=== PATIENT | female | born 1955 | race Caucasian/White ===

== ENCOUNTER 2023-09-24 19:28 | Emergency (ER) | payer MEDICARE, SELFPAY ==
[2023-09-24 19:43] VITALS: BP 108/73; PULSE 84; RESP 22; TEMP 36.3; O2SAT 97; BMI 20.4
--- NOTE | 2023-09-24 19:51 | ED.WEAKNESS ---
HPI - Weakness General Time Seen by Provider: 19:51 Date Seen: 09/24/23 Chief complaint: Weakness Stated complaint: Ill for a few weeks-temp, Upper resp symptoms Time Seen by Provider: 09/24/23 19:50 Source: patient, family and RN notes reviewed Mode of arrival: wheelchair Limitations: no limitations Related Data Home Medications Medication Instructions Recorded Confirmed atorvastatin 10 mg tablet 10 mg PO DAILY 09/24/23 09/24/23 lisinopril 10 mg tablet 10 mg PO DAILY 09/24/23 09/24/23 Allergies Allergy/AdvReac Type Severity Reaction Status Date / Time No Known Drug Allergies Allergy Verified 09/24/23 19:42 Exam Const: Vital Signs, click to edit/add: Vital Signs - 24 hr 09/24/23 19:43 Temperature 97.3 F L Pulse Rate [Pulse Oximeter] 84 Respiratory Rate 22 Blood Pressure [Ri t Upper Arm] 108/73 Pulse Oximetry 97 Oxygen Delivery Me thod Room Air Course Vital Signs Vital signs: Initial Vital Signs Temperature 97.3 F L 09/24/23 19:43 Temperature Source Temporal Artery Scan 09/24/23 19:43 Pulse Rate 84 09/24/23 19:43 Respiratory Rate 22 09/24/23 19:43 Blood Pressure 108/73 09/24/23 19:43 Blood Pressure Mean 84 09/24/23 19:43 Blood Pressure Position Sitting 09/24/23 19:43 Pulse Oximetry 97 09/24/23 19:43 Oxygen Delivery Method Room Air 09/24/23 19:43 Vital Signs Temperature 97.3 F L 09/24/23 19:43 Pulse Rate 84 09/24/23 19:43 Respiratory Rate 22 09/24/23 19:43 Blood Pressure 108/73 09/24/23 19:43 Pulse Oximetry 97 09/24/23 19:43 Oxygen Delivery Method Room Air 09/24/23 19:43 Temperature 97.3 F L 09/24/23 19:43 Pulse Rate 84 09/24/23 19:43 Respiratory Rate 22 09/24/23 19:43 Blood Pressure 108/73 09/24/23 19:43 Pulse Oximetry 97 09/24/23 19:43 Oxygen Delivery Method Room Air 09/24/23 19:43 Discharge Plan Discharge Prescriptions: No Action atorvastatin 10 mg tablet 10 mg PO DAILY lisinopril 10 mg tablet 10 mg PO DAILY Follow Up/Referrals: Gumaro May PA-C [Primary Care Provider] -
--- NOTE | 2023-09-24 20:17 | CRLHL7_ITS ---
For Patients: As a result of the Cures Act, medical imaging exams and procedure reports are released immediately into your electronic medical record. You may view this report before your referring provider. If you have questions, please contact your health care provider. INDICATION: Cough, weakness TECHNIQUE: Chest radiograph 2 views COMPARISON: None FINDINGS: Mediastinum: Small sliding type gastric hiatal hernia (type IV) is present. Hypertension Moderate cardiomegaly is present. Lung: Both lungs are unremarkable in appearance. No sign of pleural effusion seen. No pneumothorax is identified. Bone and Soft tissue: Unremarkable for age. IMPRESSION: 1. Moderate cardiomegaly is present. Dictated by Angel Ramos MD @ 09/24/2023 9:49:00 PM Dictated by: Angel Ramos MD @ 09/24/2023 21:49:04 (Electronically Signed)
--- NOTE | 2023-09-24 20:21 | ED.GENADULT ---
HPI - General Adult General Chief complaint: Weakness Stated complaint: Ill for a few weeks-temp, Upper resp symptoms Time Seen by Provider: 09/24/23 19:50 Source: patient, family and RN notes reviewed Mode of arrival: wheelchair Limitations: no limitations History of Present Illness HPI narrative: This 67-year-old female comes in with her reporting generalized weakness. She has been coughing and had fever with upper respiratory symptoms initially that began almost 2 weeks ago. She continues to have cough and generalized weakness. She comes in now because she is not getting any better. She arrives here with normal vital signs. She did have a couple tests at home for COVID which resulted negative. Her thinks that might of been influenza. She reports generalized weakness but states that she is able to get up and ambulate but does so with difficulty. Related Data Home Medications Medication Instructions Recorded Confirmed atorvastatin 10 mg tablet 10 mg PO DAILY 09/24/23 09/24/23 lisinopril 10 mg tablet 10 mg PO DAILY 09/24/23 09/24/23 Allergies Allergy/AdvReac Type Severity Reaction Status Date / Time No Known Drug Allergies Allergy Verified 09/24/23 19:42 Review of Systems Status of ROS: Reports: 10 or more systems reviewed and unremarkable except as noted in History and below Narrative: Constitutional: No fevers, no weight gain or loss. Eyes: No discharge. No vision changes. HENT: No congestion, no sore throat, no ear pain. Cardiovascular: No chest pain, no palpitations. Respiratory: Productive cough. No shortness of breath. Gastrointestinal: No abdominal pain, no vomiting, no diarrhea. Genitourinary: No dysuria, no hematuria. Musculoskeletal: Normal range of motion. Skin: No rashes, no pruritis. Neurological: No dizziness, sensory change, speech change. Generalized weakness. Endo/Heme/Allergies: No bruising or bleeding. No polydipsia. Pysch: no suicidality, no anxiety, no insomnia. All other systems reviewed and are negative. PFSH PFSH Social History Smoking Status: Never smoker How often do you have a drink containing alcohol: never AUDIT-C Alcohol total score: 0 Non-prescribed substance use: denies use Exam Narrative: Exam Narrative: Constitutional: Well-developed, well-nourished, no acute distress. HEENT: Normocephalic, atraumatic. Neck: Normal range of motion. Nontender. Supple. Heart: Regular. No murmurs. Normal rate. Intact distal pulses. Lungs: Clear to auscultation. No chest discomfort. No wheezes, rhonchi, or rales. Abdomen: Normal bowel sounds. Nontender. No rebound tenderness. Genitalia: Deferred. Back: No midline tenderness. Normal range of motion. Extremities: Normal range of motion. No injury. No pedal edema. Skin: Intact. No rash. Warm. No erythema or pallor. Neurologic: No altered sensation. No weakness. Alert and oriented. Psychiatric: No suicidality. No anxiety or depression. No insomnia. Nursing notes and vitals signs are reviewed. Const: Vital Signs, click to edit/add: Vital Signs - 24 hr 09/24/23 19:43 09/24/23 21:57 Temperature 97.3 F L Pulse Rate [Pulse Oximeter] 84 77 Respiratory Rate 22 Blood Pressure [Ri t Upper Arm] 108/73 Pulse Oximetry 97 97 Oxygen Delivery Me thod Room Air Room Air Course Vital Signs Vital signs: Initial Vital Signs Temperature 97.3 F L 09/24/23 19:43 Temperature Source Temporal Artery Scan 09/24/23 19:43 Pulse Rate 84 09/24/23 19:43 Respiratory Rate 22 09/24/23 19:43 Blood Pressure 108/73 09/24/23 19:43 Blood Pressure Mean 84 09/24/23 19:43 Blood Pressure Position Sitting 09/24/23 19:43 Pulse Oximetry 97 09/24/23 19:43 Oxygen Delivery Method Room Air 09/24/23 19:43 Vital Signs Temperature 97.3 F L 09/24/23 19:43 Pulse Rate 84 09/24/23 19:43 Respiratory Rate 22 09/24/23 19:43 Blood Pressure 108/73 09/24/23 19:43 Pulse Oximetry 97 09/24/23 19:43 Oxygen Delivery Method Room Air 09/24/23 19:43 Temperature 97.3 F L 09/24/23 19:43 Pulse Rate 77 09/24/23 21:57 Respiratory Rate 22 09/24/23 19:43 Blood Pressure 108/73 09/24/23 19:43 Pulse Oximetry 97 09/24/23 21:57 Oxygen Delivery Method Room Air 09/24/23 21:57 Medications Administered Medications: Generic Name Dose Route Start Last Admin Trade Name Can PRN Reason Stop Dose Admin Dexamethasone 10 mg 09/24/23 20:16 09/24/23 21:12 Dexamethasone 4 Mg/Ml Vial IV 09/24/23 20:17 10 mg ONCE ONE Administration Dextrose/Sodium Chloride 1,000 mls @ 1,000 mls/hr 09/24/23 20:16 09/24/23 22:41 5 % Dextrose/0.45% Sod Chlor IV 09/24/23 21:15 Infused .Q1H ONE Infusion Medical Decision Making MDM Narrative Medical decision making narrative: This patient comes in with generalized weakness and has on going cough and upper respiratory symptoms that started a couple weeks ago. A chest x-ray is obtained today which shows no acute findings. Additionally lab results are essentially reassuring. Her sodium is a bit low. She did receive a L of D5 half normal saline and an IV dose of dexamethasone 10 mg. Urinalysis returns without any evidence of infection. She is maintaining normal vital signs. Her states that she is not wanting to get up and move around and has decreased appetite. I stressed the importance of maintaining activity to avoid deconditioning. She is able to get up and ambulate. At the time of discharge the patient appears safe for outpatient management. The treatment plan is reviewed along with written and verbal return precautions. Reasons to return and the importance of close followup were also reviewed. The patient did receive a prescription for some tablets of Tylenol 3. Lab Data Labs: Lab Results 09/24/23 09/24/23 Range/Units 20:19 20:40 WBC 4.97 (4.50-11.00) K/uL RBC 4.49 (4.00-5.20) m/uL Hgb 13.6 (12.0-16.0) gm/dL Hct 40.1 (33.0-51.0) % MCV 89 (80-100) fL MCH 30 (26-34) pg MCHC 34 (32-36) gm/dL RDW Coeff of Agnes 12.7 (11.5-15.5) % Plt Count 190 (140-440) K/uL Neut % (Auto) 69.6 (42.0-72.0) % Lymph % (Auto) 17.5 L (20-44) % [place] % (Auto) 12.1 H (0.0-11.0) % Eos % (Auto) 0.2 (0.0-7.0) % Baso % (Auto) 0.4 (0.0-3.0) % Neut # (Auto) 3.46 (1.7-7.0) K/uL Lymph # (Auto) 0.90 (0.90-2.90) K/uL [place] # (Auto) 0.60 (0.00-0.90) K/UL Eos # (Auto) 0.01 (0.00-0.50) K/uL Baso # (Auto) 0.02 (0.00-0.30) K/uL Abs Immat Gran (auto) 0.01 (0.00-0.30) K/uL Imm/Tot Granulo (auto) 0.2 % Sodium 128 L (135-149) mmol/L Potassium 4.2 (3.6-5.1) mmol/L Chloride 94 L (96-114) mmol/L Carbon Dioxide 25 (20-32) mmol/L Anion Gap 9 (7-15) mEq/L BUN 9 (7-30) mg/dL Creatinine 0.9 (0.5-1.5) mg/dL Estimated Creat Clear 50.82 Estimated GFR 70 ml/min Glucose 118 H (60-115) mg/dL Calcium 8.5 (8.4-10.6) mg/dL Urine Color Yellow (Yellow) Urine Appearance Clear (Clear) Urine pH 6.0 (5.0-8.5) Ur Specific [place] 1.010 (1.000-1.030) Urine Protein Negative (Negative) Urine Glucose (UA) Trace A (Negative) Urine Ketones Trace A (Negative) Urine Blood Negative (Negative) Urine Nitrite Negative (Negative) Urine Bilirubin 1+ A (Negative) Urine Urobilinogen 0.2 (0.2-1.0) Ur Leukocyte Esterase Negative (Negative) Urine RBC 0-2 (0-2) Urine WBC 0-2 (0-5) Ur Squamous Epith Cells Few (None-Few) Urine Bacteria Few A (None) Hyaline Casts Few (None-Few) SARS-CoV-2 (PCR) Negative SARS-CoV-2 (Negative) Influenza Type A (PCR) Negative PCR FLU A (Negative) Influenza Type B (PCR) Negative PCR FLU B (Negative) RSV (PCR) Negative PCR RSV (Negative) Imaging Data Chest x-ray: Radiologist's impression: Moderate cardiomegaly is present. Discharge Plan Discharge Clinical Impression: Acute upper respiratory infection Patient Disposition: Home w/ Parent or Adult Condition: Unchanged Additional Instructions: Use [id number] medicines as needed and directed. Use prescription also as needed and directed for cough suppressant benefit. Activity as tolerated is encouraged. Follow up with MD or return if worsening. Prescriptions: No Action atorvastatin 10 mg tablet 10 mg PO DAILY lisinopril 10 mg tablet 10 mg PO DAILY Follow Up/Referrals: Gumaro May PA-C [Primary Care Provider] - Stand Alone Forms: [facility] Info Instructions
[2023-09-24 20:54] LABS: Basophils Absolute Auto 0.02 K/uL (0.00-0.30); Basophils Percent Auto 0.4 % (0.0-3.0); Eosinophils Absolute Auto 0.01 K/uL (0.00-0.50); Eosinophils Percent Auto 0.2 % (0.0-7.0); Hematocrit 40.1 % (33.0-51.0); Hemoglobin* 13.6 gm/dL (12.0-16.0); Immature Granulocytes Abs Auto 0.01 K/uL (0.00-0.30); Immature Granulocytes Pct Auto 0.2 %; Lymphocytes Percent Auto 17.5 % (20-44); Mean Corpuscular HGB Conc 34 gm/dL (32-36); Mean Corpuscular Hemoglobin 30 pg (26-34); Mean Corpuscular Volume 89 fL (80-100); Monocytes Percent Auto 12.1 % (0.0-11.0); Neutrophils Absolute Auto 3.46 K/uL (1.7-7.0); Neutrophils Percent Auto 69.6 % (42.0-72.0); Platelet Count* 190 K/uL (140-440); RDW Coefficient of Variation % 12.7 % (11.5-15.5); Red Blood Count 4.49 m/uL (4.00-5.20); White Blood Count* 4.97 K/uL (4.50-11.00)
[2023-09-24 20:59] LABS: Slide Review Reflex No
[2023-09-24 21:01] LABS: Chloride* 94 mmol/L (96-114); Potassium* 4.2 mmol/L (3.6-5.1); Sodium* 128 mmol/L (135-149)
[2023-09-24 21:04] LABS: Anion Gap 9 mEq/L (7-15); Blood Urea Nitrogen* 9 mg/dL (7-30); Carbon Dioxide* 25 mmol/L (20-32); Creatinine* 0.9 mg/dL (0.5-1.5); Est. Creatinine Clearance* 50.82; Estimated Glomerular Filt Rate 70 ml/min
[2023-09-24 21:05] LABS: Calcium* 8.5 mg/dL (8.4-10.6); Glucose* 118 mg/dL (60-115)
[2023-09-24] MEDS: dexAMETHasone 4 MG/ML VIAL 10 MG IV (21:12)
[2023-09-24] MEDS: 5 % DEXTROSE/0.45% SOD CHLOR 1,000 ML 1000 ML IV (21:13)
[2023-09-24 21:38] LABS: PCR FLU A Negative PCR FLU A (Negative); PCR FLU B Negative PCR FLU B (Negative); PCR RSV Negative PCR RSV (Negative); SARS PCR* Negative SARS-CoV-2 (Negative)
[2023-09-24 21:57] VITALS: PULSE 77; O2SAT 97
[2023-09-24 22:19] LABS: Appearance Urine Clear (Clear); Bilirubin Urine 1+ (Negative); Blood Urine Negative (Negative); Color Urine Yellow (Yellow); Glucose Urine Trace (Negative); Ketones Urine Trace (Negative); Leukocyte Esterase Urine Negative (Negative); Nitrite Urine Negative (Negative); Protein Urine Negative (Negative); Urobilinogen Urine 0.2 (0.2-1.0)
[2023-09-24 22:54] LABS: Bacteria Urine Few; RBC Urine 0-2 (0-2); Squamous Epithelial Cell Urine Few (None-Few); WBC Urine 0-2 (0-5)
[2023-09-24 22:55] LABS: Hyaline Casts Urine Few (None-Few)
== END 2023-09-24 23:17 | disposition home or self-care (01) ==
PROVIDERS: Emergency Provider Emergency Medicine Emergency Medical Services; PCP Physician Assistant Medical
DX: J06.9 Acute upper respiratory infection, unspecified (principal)
CPT/HCPCS: 36415; 71046; 80048; 81001; 85025; 87086; 87631; 96361; 96374; 99284; J1100; S5010

== ENCOUNTER 2025-05-22 18:37 | Inpatient (IN) | payer MEDICARE, SELFPAY ==
--- OUTSIDE RECORDS SUMMARY | 2009-10-27 07:18 | XMS_ITS | Continuity of Care Document ---
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 [address] [facility], [place], [place], [id number], [place]. tel:[phone] Referring Provider: Kirsten Negron MD L, [address] [facility] [address], [place], [address]. tel:[phone] Family History Family Member Type Diagnosis Age At Onset No Information Payers Payer name Insurance type Covered green party ID Authoriza tion(s) No Information Social History Type Description Quantity Date Captured Comments Sex Female Smoking Status No Information Chief Complaint And Reason For Visit No Information Reason For Referral Reason For Referral No Information History Of Present Illness Encounter Date Complaint History Of Prese nt Illness No Information Functional Status Date Functional Assessmen t No Information Instructions Date Instruction Additional Infor mation No Information Assessments Type Assessment Date No Information Patient Care Teams Name Effective Dates (start - stop) Status Members No Information
--- OUTSIDE RECORDS SUMMARY | 2009-10-27 07:18 | XMS_ITS | Continuity of Care Document ---
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 [address] [facility], [place], [place], [id number], [place]. tel:[phone] Referring Provider: Kirsten Negron MD L, [address] [facility] [address], [place], [address]. tel:[phone] Family History Family Member Type Diagnosis Age At Onset No Information Payers Payer name Insurance type Covered democrat ID Authoriza tion(s) No Information Social History [...]
[2025-05-22] VITALS (18 sets, daily range): BP systolic 80–123; BP diastolic 57–72; PULSE 61–101; RESP 12–18; TEMP 36.8; O2SAT 94–100
--- OUTSIDE RECORDS SUMMARY | 2025-05-22 18:39 | XMS_ITS | Clinical Summary ---
Author Organization [facility] Address [address] [place] [address] Care Team Providers Care Glass Embosser Name Role Phone Pcp, No Primary Care Provider Unavailabl e Allergies No known active allergies Medications albuterol HFA (PRO-AIR; VENTOLIN; PROVENTIL) 90 mcg/actuation inhalerIndicatio ns:Wheezing,Christine l URI with cough Inhale 1-2 Puffs by mouth every 4 hours if needed for Shortness Of Breath or Wheezing. 1 Each 4 Active ketorolac 0.4 % (ACULAR LS) 0.4 % ophthalmic solutionIndicati ons:Nuclear sclerotic cataract of both eyes START DROPS IN AFFECTED EYE AFTER SURGERY, RIGHT EYE 04/01/2024 LEFT EYE 04/15/2024 . ONE DROP FOUR TIMES A DAY FOR THREE WEEKS. 5 mL 2 4 Active Additional Information Patient not taking.Reported on 04/21/2025 lisinopriL (PRINIVIL; ZESTRIL) 10 mg tabletIndication s:HOCM (hypertrophic obstructive cardiomyopathy) (HC),Chronic systolic heart failure (HC),Heart failure, unspecified HF chronicity, unspecified heart failure type (HC) Take 2 Tablets (20 mg) by mouth once daily. 90 Tablet 3 4 Active aspirin (ECOTRIN) 81 mg enteric coated tablet Take 1 Tablet (81 mg) by mouth once daily with a meal. 4 Active metoprolol succinate (Toprol XL) 25 mg Sustained-Releas e tabletIndication s:HOCM (hypertrophic obstructive cardiomyopathy) (HC),Chronic systolic heart failure (HC),Dyspnea on exertion,Pulmona ry venous congestion,Heart failure, unspecified HF chronicity, unspecified heart failure type (HC) Take 1 Tablet (25 mg) by mouth once daily. 90 Tablet 3 4 Active furosemide (LASIX) 20 mg tabletIndication s:Pulmonary venous congestion,Heart failure, unspecified HF chronicity, unspecified heart failure type (HC) Take 20 mg (1 tablet) by mouth NEEDED once per day for a weight gain of 3 pounds in 1 day, 5 pounds in 1 week, or shortness of breath. 30 Tablet 3 4 Active atorvastatin (LIPITOR) 40 mg tabletIndication s:ASHD (arterioscleroti c heart disease) Take 1 Tablet (40 mg) by mouth once daily. 90 Tablet 3 4 Active spironolactone (ALDACTONE) 25 mg tabletIndication s:Essential hypertension,HOC M (hypertrophic obstructive cardiomyopathy) (HC) Take 1 Tablet (25 mg) by mouth once daily. 90 Tablet 3 4 Active Active Problems Problem Noted Date Diagnosed Date Hypertrophic cardiomyopathy 04/20/2025 Chronic systolic heart failure 04/20/2025 HOCM (hypertrophic obstructive cardiomyopathy) 0 01/07/2024 LBBB (left bundle branch block) 07/30/2022 Osteopenia of neck of left femur 02/28/2021 Overview (02/28/2021): DEXA 02/22/21: T-scores AP: -0.8, LFN -1.2, total hip -0.5. FRAX 15.4%. Recommend basic bone health and repeat in 3-5 years. Mixed dyslipidemia 02/08/2021 Prediabetes 02/08/2021 Heartburn 10/26/2015 Hypertension 10/26/2015 Hearing loss of right ear 10/26/2015 Unspecified essential hypertension 08/04/2005 Iron deficiency anemia, unspecified 08/04/2005 Encounters Date Type Department Care Team Description 05/20/2025 11:00 AM CDT Orders Only [facility] [address] [address] Lab 05/20/2025 10:00 AM CDT Ancillary Procedure [facility] [address] [facility] [address] [place] [address] Arrived 05/20/2025 Travel 05/02/[address] Thacker [address] [facility] [place] [address] Reyes Wick MD HCM appt 04/21/2025 1:30 PM CDT Office Visit [facility] [address] [facility] [address] [place] [address] Karin Tucker PA Follow Up (6 month follow up - gen card est//Pt reports increased fatigue recently and occasional dizziness when standing up) 04/21/2025 Telephone [facility] [address] [facility] [address] [place] [address] Richa Nieves RN Testing (Genetic Testing) 04/21/2025 Travel 03/09/[address] [place] [id number] Karin Tucker PA Appointment (6 month f/u ) from Last 3 Months Immunizations Immunization Administration Dates Next Due COVID-19 vaccine ([employer] 30mcg/0.3mL) P F, MDV 10/27/2020,10/06/2020 Hepatitis B (Adult) 02/17/2007,10/14/2006 Influenza A (H1N1), Inactivated 10/27/2009 Influenza, IIV3 (Age 6-35 mos) 10/27/2009 Influenza, IIV3 (Age >=3 years) 06/21/2008 Influenza, IIV4 06/05/2019,08/05/2016 Influenza, Inactivated AIIV4 (Age 65+ Years) Preserv Free 08/28/2021 Pneumococcal Poly,23-Valent (Pneumovax) 02/08/20 21 Td (Age >=7 Years) 09/02/2000,06/22/1991 Tdap 09/13/2019 Zoster (Shingrix-RZV, recombinant) 10/05/2019, Family History Medical History Relation Name Comments Other Mother macular degener ation Anesthesia Problem No Family History Blood Disease No Family History Cancer-breast No Family History Cancer-ovarian No Family History Clotting disorder No Family History Relation Name Status Comments Father Mother Social History Tobacco Use Types Packs/Day Years Used Date Smoking Tobacco: Former Cigarettes 0.5 31 1 960 - 1990 Smokeless Tobacco: Never Tobacco Cessation:Counseling Given: Not Answered Alcohol Use Standard Drinks/Week Comments Yes 7 (1 standard drink = 0.6 oz pur e alcohol) Social Connections Answer Date Recorded Do you often feel lonely or isolated from those around you? 0 01/07/2024 Financial Resource Strain Answer Date R ecorded Difficulty of Paying Living Expenses 3 01/07/2024 Difficulty of Paying Living Expenses Not on file 01/07/2024 Food Insecurity Answer Date Recorded Do you worry your food will run out before you are able to buy more? 1 01/07/2024 Transportation Needs Answer Date Record ed Does lack of transportation keep you from medica l appointments? 1 01/07/2024 Does lack of transportation keep you from work, meetings or getting things that you need? 1 01/07/2024 Housing Stability Answer Date Recorded What is your housing situation today? 1 01/07/2024 Utilities Answer Date Recorded Do you have trouble paying f or utilities (for example, heat, electricity, water, phone)? 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 Gender Identity Not on file Sexual Orientation Not on file Occupation Industry Job Start Date Job End Date Retired Not on file Not on file Not on file Obstetrics History Last Filed Vital Signs Vital Sign Reading Time Taken Comments Blood Pressure 120/72 04/21/2025 1:29 PM CDT Pulse 80 04/21/2025 1:29 PM CDT Temperature 36.1 C (97 F) 04/15/2024 7:49 AM CDT Respiratory Rate 16 04/15/2024 8:10 AM CDT Oxygen Saturation 98% 04/21/2025 1:29 PM CDT Inhaled Oxygen Concentration - - Weight 63 kg (139 lb) 04/21/2025 1:29 PM CDT Height 165.1 cm (5' 5) 04/21/2025 1:29 PM CDT Body Mass Index 23.13 04/21/2025 1:29 PM CDT Plan of Treatment Upcoming Encounters Date Type Department Care Team (Late st Contact Info) Description 07/28/2025 1:00 PM TELESERVICES REPRESENTATIVE Office Visit [facility] [address] [place] [address] Dr [address] [place] [address] Reyes Wick MD [address] [place] [address] Dr [address] [place] [address] Health Maintenance Due Date Last Done Comments Hepatitis B series for 19+ ( 3 of 3 - 19+ 3-dose series) 04/14/2007 02/17/2007, 10/14/2006 RSV vaccine for adults or (1 - Risk 60-74 years 1-dose series) 2015 Depression screening for age 12+ 11/22/2016 11/23/19 16 Medicare Wellness for age 65+ 12/27/2020 Pneumococcal series for age 50+ (2 of 2 - PCV) 02/07/2022 02/07/2021 Fecal testing non-DNA (FIT,FOBT,iFOBT) for age 45-75 02/09/2022 02/09/2021 Mammogram for age 45-75 02/22/2022 02/22/2021 COVID-19 vaccine series ( season) 2025 08/28/2021, 10/27/2020, 10/06/2020 Influenza Vaccine (#1) 2025 , 06/05/2019, 08/05/2016, Additional history exists BMI (ht and wt on same day) for age 18+ 04/21/2026 04/21/2025, 07/30/2024, 04/05/2024, Additional history exists Tetanus booster 09/13/2029 09/13/2019, 08/15, 06/22/1991 Lipids for age 45-75 05/20/2030 05/20/2025, 07/30/2024, 02/07/2021 Zoster (shingles) series for age 50+ Completed 10/05/2019, 06/05/2019 Hepatitis C screening for ag e 18-79 Completed 02/07/2021 DEXA/DXA scan for age 65+ Completed 02/22/2021 Medical Devices Implanted Type Area Scrap Metal Burner Device Identifier Shelf Expiration Date Model / Serial / Lot Iol [place] Preload 1 Pc Clear 6mm 21.50 Diopter [employer]nis - [id number] Implanted:Qty : 1 on 04/01/2024 by Maycol [place] MD at [facility] Right: Eye [employer] IOL 08/12/2026 [id number] / [id number] / NA Iol [place] Preload 1 Pc Clear 6mm 21.00 Diopter [employer]nis - [id number] Implanted:Qty : 1 on 04/15/2024 by Maycol [place] MD at [facility] Left: Eye [employer] 02/23/2027 [id number] / [id number] / NA Procedures Procedure Name Priority Date/Time Associated Diagnosis Comments LIPID PANEL W REFLEX MEASURED LDL Routine 05/20/2025 10:53 AM CDT Mixed dyslipidemia PRO-BNP Routine 05/20/2025 10:53 AM CDT Dyspnea on exertion Heart failure, unspecified HF chronicity, unspecified heart failure type (HC) SOB (shortness of breath) BASIC METABOLIC PANEL Routine 05/20/2025 10:53 AM CDT Hypertension Chronic systolic heart failure (HC) HOCM (hypertrophic obstructive cardiomyopathy) (HC) ECHO TTE COMPLETE WO CONTRAST Routine 05/20/2025 10:37 AM CDT Hypertrophic cardiomyopathy (HC) HOCM (hypertrophic obstructive cardiomyopathy) (HC) Pulmonary venous congestion Heart failure, unspecified HF chronicity, unspecified heart failure type (HC) XR DXA BONE DENSITY 2 SITES AXIAL Routine 02/22/2021 10:40 AM CDT Osteoporosis screening XR MAMMO BILAT SCREENING Routine 02/22/2021 10:19 AM CDT Visit for screening mammogram OCCULT BLOOD IFOBT STOOL Routine 02/09/2021 1:07 PM CDT Special screening for malignant neoplasms, colon ANTI HCV Routine 02/07/2021 9:32 AM CDT Need for hepatitis C screening test from Last 3 Months or Most Recently Relevant to Health Maintenance Results * LIPID PANEL W REFLEX MEASURED LDL (05/20/2025 10:53 AM CDT) CHOLESTEROL, TOTAL 181 <200 mg/dL 05/21/2025 3:53 AM CDT [facility] TRIGLYCERIDES 144 <150 mg/dL 05/21/2025 3:53 AM CDT [facility] HDL CHOLESTEROL 67 > OR = 50 mg/dL 05/21/2025 3:53 AM CDT [facility] NON HDL CHOLESTEROL 114 <130 mg/dL (calc) 05/21/2025 3:53 AM CDT [facility] Comment: For patients with diabetes plus 1 major ASCVD risk factor, treating to a non-HDL-C goal of <100 mg/dL (LDL-C of <70 mg/dL) is considered a therapeutic option. CHOL/HDLC RATIO 2.7 <5.0 (calc) 05/21/2025 3:53 AM CDT [facility] LDL-CHOLESTEROL 90 mg/dL (calc) 05/21/2025 3:53 AM CDT [facility] Comment: Reference range: <100 Desirable range <100 mg/dL for primary prevention; <70 mg/dL for patients with CHD or diabetic patients with > or = 2 CHD risk factors. LDL-C is now calculated using the Daryl-Leah calculation, which is a validated novel method providing better accuracy than the Friedewald equation in the estimation of LDL-C. Daryl SS et al. VIRGIL. 2013;310(19): 7052-7750 (http://education.Liquidnet.MyCadbox/faq/YOV084) Blood BLOOD SPECIMEN / Unknown [facility] / Unknown 05/20/2025 10:53 AM CDT 05/20/2025 10:53 AM CDT Karin SWENSON CHEMISTRY Final Res ult Performing Organization Address [facility]/ZIP Co de Phone Number [facility] [address] [phone], * (ABNORMAL) PRO-BNP (05/20/2025 10:53 AM CDT) NT PROBNP 2674(H) <125 pg/mL 05/21/2025 12:59 PM CDT [facility] Blood BLOOD SPECIMEN / Unknown [facility] / Unknown 05/20/2025 10:53 AM CDT 05/20/2025 10:53 AM CDT Karin SWENSON SEND OUTS Final Res ult Performing Organization Address [facility] de Phone Number [facility] [address] [address], * (ABNORMAL) BASIC METABOLIC PANEL (05/20/2025 10:53 AM CDT) SODIUM 136 135 - 146 mmol/L 05/21/2025 3:53 AM CDT [facility] POTASSIUM 4.0 3.5 - 5.3 mmol/L 05/21/2025 3:53 AM CDT [facility] CARBON DIOXIDE 33(H) 20 - 32 mmol/L 05/21/2025 3:53 AM CDT [facility] GLUCOSE 111(H) 65 - 99 mg/dL 05/21/2025 3:53 AM CDT [facility] Comment: Fasting reference interval For someone without known diabetes, a glucose value between 100 and 125 mg/dL is consistent with prediabetes and should be confirmed with a follow-up test. CALCIUM 11.2(H) 8.6 - 10.4 mg/dL 05/21/2025 3:53 AM CDT [facility] CREATININE 1.13(H) 0.50 - 1.05 mg/dL 05/21/2025 3:53 AM CDT [facility] BUN/CREATININE RATIO 12 6 - 22 (calc) 05/21/2025 3:53 AM CDT [facility] EGFR 53(L) > OR = 60 mL/min/1. 73m2 05/21/2025 3:53 AM CDT [facility] UREA NITROGEN (BUN) 13 7 - 25 mg/dL 05/21/2025 3:53 AM CDT [facility] ELECTROLYTE BALANCE 10 7 - 17 mmol/L (calc) 05/21/2025 3:53 AM CDT [facility] CHLORIDE 93(L) 98 - 110 mmol/L 05/21/2025 3:53 AM CDT [facility] Blood BLOOD SPECIMEN / Unknown [facility] / Unknown 05/20/2025 10:53 AM CDT 05/20/2025 10:53 AM CDT us Karin Tucker PA CHEMISTRY Final Res ult [facility] [address] [place] [address], [place] [phone] * ECHO TTE COMPLETE WO CONTRAST (05/20/2025 10:37 AM CDT) AORTIC VALVE MEAN PG 13 mmHg EJECTION FRACTION 55 % PEAK TR VELOCITY 2.5 m/s LVEDD 4.2 cm MITRAL VALVE MR ERO 31 mm2 Anatomical Region Laterality Modality Ultrasound 05/20/2025 10:0 7 AM CDT Narrative 05/20/2025 12:45 PM CDT ECHOCARDIOGRAM PETER ENCARNACION : 1955 69 years Study Date: 05/20/2025 10:07:42 AM Gender: F BP: 120/72 mmHg Height: 165.10 cm BSA: 1.69 m Weight: 63.05 kg Tech: MSR Referring MD: KARIN TUCKER Site: [facility] Reading Location: [facility] Patient Location: Outpatient. Procedure: 2D, Color Doppler and Spectral Doppler. Indication for study: Hypertrophic cardiomyopathy (HC); HOCM (hypertrophic obstructive cardiomyopathy) (HC); Pulmonary venous congestion; Heart failure, unspecified HF chronicity, unspecified heart failure type (HC) Cardiac Rhythm: Normal sinus.Study quality: Good. Final Impressions: 1. Normal left ventricular size, severely increased wall thickness, normal global systolic function, calculated EF of 55 %. 2. Abnormal septal motion consistent with left bundle branch block. 3. Severe asymmetric left ventricular hypertrophy. Maximal septal thickness 1.7 cm. 4. Moderately enlarged left atrium. 5. The aortic valve is trileaflet and sclerotic, mild stenosis and trivial regurgitation. The aortic valve peak velocity is 2.4 m/s, the peak gradient is 23 mmHg, and the mean gradient is 13 mmHg. The aortic valve area is 1.58 cm with a dimensionless index of 0.46. The stroke volume index is 39.6 ml/m . 6. The mitral valve is sclerotic, moderate mitral regurgitation. 7. No evidence of significant LVOT obstruction including with Valsalva. Comparison Compared to prior exam report of 06/09/24: - The left ventricular function has increased. Chamber Sizes and Function Normal left ventricular size, severely increased wall thickness, normal global systolic function, calculated EF of 55 %. Severe asymmetric left ventricular hypertrophy. Abnormal (paradoxical) septal motion, consistent with left bundle branch block. No evidence of significant LVOT obstruction but Valsalva not performed. Left atrial size is moderately enlarged. Right ventricular cavity size is normal, global systolic RV function is normal. RV wall thickness is normal. The right atrium is normal. The pulmonary artery is of normal size and origin. The sinus of Valsalva is normal sized. The ascending aorta is normal sized. Valves, RV Pressures and Diastolic Function The aortic valve is trileaflet and sclerotic, mild stenosis and trivial regurgitation. The mitral valve is sclerotic, moderate mitral regurgitation. (PISA ERO 31 mm and RV of 65 ml). Moderate mitral annular calcification is present. Spectral Doppler shows Grade 1 pattern of LV diastolic filling. The tricuspid valve is normal in structure, mild tricuspid regurgitation. The tricuspid regurgitant velocity is 2.5 m/s, the estimated right ventricular systolic pressure is 25 mmHg plus right atrial pressure. There is normal estimated pulmonary pressure by tricuspid regurgitation velocity and right atrial pressure. The pulmonic valve is normal. No pulmonary regurgitation. Masses, Effusion, Shunts There is no pericardial effusion. The inferior vena cava is normal sized, respiratory size variation greater than 50%. No left to right shunting was detected by limited color flow Doppler interrogation of the interatrial septum. MEASUREMENTS AND CALCULATIONS 2-D Measurements and LV Function: LVID (d) 4.2 cm Planimetered EF 55 % LVID (s) 3.2 cm LV FS% (2D) 24 % IVS (d) 1.6 cm LVOT diameter 2.1 cm LVPW (d) 1.4 cm HR 81 bpm Ao Sinus 2.8 cm LA Vol index 47 ml/m2 Ao Sinus ULN 3.7 cm RV Basal Diam 4.0 cm Asc Ao 3.6 cm Asc Ao ULN 3.9 cm LA 4.8 cm Diastology: Mitral Tissue Doppler E Peak 0.5 m/s e', Septum 0.04 m/s A Peak 1.2 m/s e', Lateral 0.09 m/s E/A 0.4 E/e' Average 7.89 DT 123 msec Aortic Valve: Vmax 2.4 m/s FANY (V) 1.60 cm VTI 0.43 m FANY (I) 1.58 cm LVOT V max 1.1 m/s Max PG 23 mmHg LVOT VTI 0.19 m Mean PG 13 mmHg SV 67 ml Dim Index 0.46 SV index 40 ml/m CO 5.4 l/min CI 3.2 l/min/m Mitral Valve: MVA 6.2 cm MR ERO 0.31 cm MV P 1/2 36 msec MR Vol. 65 ml MV Mean G 3 mmHg MR TVI 2.10 m Tricuspid Valve and estimated PA pressures: TR Vmax 2.5 m/s TAPSE 2.1 cm TR maxG 25 mmHg . Report modified by Constantin Ng MD on 05/20/2025 1:43:02 PM. This study was interpreted by an [facility] accredited facility. Final (Updated) Procedure Note Constantin Ng MD - 05/20/2025 ECHOCARDIOGRAM PETER ENCARNACION : 1955 69 years Study Date: 05/20/2025 10:07:42 AM Gender: F BP: 120/72 mmHg Height: 165.10 cm BSA: 1.69 m Weight: 63.05 kg Tech: MSR Referring MD: KARIN TORRES CASE Site: [facility] Reading Location: [facility] Patient Location: Outpatient. Procedure: 2D, Color Doppler and Spectral Doppler. Indication for study: Hypertrophic cardiomyopathy (HC); HOCM (hypertrophicobstructive cardiomyopathy) (HC); Pulmonary venous congestion; Heartfailure, unspecified HF chronicity, unspecified heart failure type (HC) Cardiac Rhythm: Normal sinus.Study quality: Good. Final Impressions: 1. Normal left ventricular size, severely increased wall thickness,normal global systolic function, calculated EF of 55 %. 2. Abnormal septal motion consistent with left bundle branch block. 3. Severe asymmetric left ventricular hypertrophy. Maximal septalthickness 1.7 cm. 4. Moderately enlarged left atrium. 5. The aortic valve is trileaflet and sclerotic, mild stenosis andtrivial regurgitation. The aortic valve peak velocity is 2.4 m/s, the peakgradient is 23 mmHg, and the mean gradient is 13 mmHg. The aortic valvearea is 1.58 cm with a dimensionless index of 0.46. The stroke volumeindex is 39.6 ml/m . 6. The mitral valve is sclerotic, moderate mitral regurgitation. 7. No evidence of significant LVOT obstruction including with Valsalva. Comparison Compared to prior exam report of 06/09/24: - The left ventricular function has increased. Chamber Sizes and Function Normal left ventricular size, severely increased wall thickness, normalglobal systolic function, calculated EF of 55 %. Severe asymmetric leftventricular hypertrophy. Abnormal (paradoxical) septal motion, consistentwith left bundle branch block. No evidence of significant LVOT obstructionbut Valsalva not performed. Left atrial size is moderately enlarged. Rightventricular cavity size is normal, global systolic RV function is normal.RV wall thickness is normal. The right atrium is normal. The pulmonaryartery is of normal size and origin. The sinus of Valsalva is normalsized. The ascending aorta is normal sized. Valves, RV Pressures and Diastolic Function The aortic valve is trileaflet and sclerotic, mild stenosis and trivialregurgitation. The mitral valve is sclerotic, moderate mitralregurgitation. (PISA ERO 31 mm and RV of 65 ml). Moderate mitral annularcalcification is present. Spectral Doppler shows Grade 1 pattern of LVdiastolic filling. The tricuspid valve is normal in structure, mildtricuspid regurgitation. The tricuspid regurgitant velocity is 2.5 m/s,the estimated right ventricular systolic pressure is 25 mmHg plus rightatrial pressure. There is normal estimated pulmonary pressure by tricuspidregurgitation velocity and right atrial pressure. The pulmonic valve isnormal. No pulmonary regurgitation. Masses, Effusion, Shunts There is no pericardial effusion. The inferior vena cava is normal sized,respiratory size variation greater than 50%. No left to right shunting wasdetected by limited color flow Doppler interrogation of the interatrialseptum. MEASUREMENTS AND CALCULATIONS 2-D Measurements and LV Function: LVID (d) 4.2 cm Planimetered EF 55 % LVID (s) 3.2 cm LV FS% (2D) 24 % IVS (d) 1.6 cm LVOT diameter 2.1 cm LVPW (d) 1.4 cm HR 81 bpm Ao Sinus 2.8 cm LA Vol index 47 ml/m2 Ao Sinus ULN 3.7 cm RV Basal Diam 4.0 cm Asc Ao 3.6 cm Asc Ao ULN 3.9 cm LA 4.8 cm Diastology: Mitral Tissue Doppler E Peak 0.5 m/s e', Septum 0.04 m/s A Peak 1.2 m/s e', Lateral 0.09 m/s E/A 0.4 E/e' Average 7.89 DT 123 msec Aortic Valve: Vmax 2.4 m/s FANY (V) 1.60 cm VTI 0.43 m FANY (I) 1.58 cm LVOT V max 1.1 m/s Max PG 23 mmHg LVOT VTI 0.19 m Mean PG 13 mmHg SV 67 ml Dim Index 0.46 SV index 40 ml/m CO 5.4 l/min CI 3.2 l/min/m Mitral Valve: MVA 6.2 cm MR ERO 0.31 cm MV P 1/2 36 msec MR Vol. 65 ml MV Mean G 3 mmHg MR TVI 2.10 m Tricuspid Valve and estimated PA pressures: TR Vmax 2.5 m/s TAPSE 2.1 cm TR maxG 25 mmHg . Report modified by Constantin Ng MD on 05/20/2025 1:43:02 PM. This study was interpreted by an [facility] accredited facility. Final (Updated) Karin GREER ORD Edited Re sult - Final * (ABNORMAL) XR DXA BONE DENSITY 2 SITES AXIAL (02/22/2021 10:40 AM CDT) Anatomical Region Laterality Modality Spine, HIPS, HIPL, HIPR Other Impressions 02/27/2021 1:45 PM CDT Osteopenia. RECOMMENDATIONS: The National Osteoporosis Foundation recommends pharmacologic treatment for patients with T-scores of -2.5 or less, patients with prior history of fragility fractures, or patients with 10-year probability of greater than 3% at hips or greater than 20% of suffering major osteoporotic fractures. Recommend continued optimization of calcium and vitamin D intake through dietary means and/or supplementation and regular exercise. Repeat scan recommended in 3-5 years. Laney Melendez PA-C [facility] 02/27/2021 Narrative 02/27/2021 1:45 PM CDT XR DXA Bone Mineral Density (BMD) EXAM LOCATION: [address] [id number] PATIENT NAME: Peter Encarnacion DATE OF : 1955 EXAM DATE: 02/22/2021 REQUESTING PROVIDER: Katherine Guzman DO GENDER AT : female HEIGHT: 5' 5 (02/07/2021) WEIGHT: 195 lb 12.8 oz (02/07/2021) MENOPAUSAL STATUS: Postmenopausal RACE/ETHNICITY: White RISK FACTORS: White Race CURRENT MEDICATION FOR BONE LOSS: NONE INDICATION: Initial scan for screening COMPARISON DATE(S): none DXA scans are compared to prior studies for a patient only when the two (or more) studies were performed on the same scanner. It is not possible to compare data generated on one scanner to data from another because there are not standards in DXA equipment. This applies even if the two scanners are made by the same change manager. PROCEDURE: Dual-energy x-ray absorptiometry performed with routine technique. Reporting is completed in the form of a T-score. The T-score represents the standard deviation from peak bone mass based on young healthy adult. A Z-score is used for diagnosis in premenopausal women, and for men under the age of 50. FINDINGS: RESULT LUMBAR SPINE L1 - L4 BMD: 1.098 g/cm2 T-Score: - 0.8 Z-Score: + 0.0 RESULT FEMORAL NECK Left Total Femoral Neck BMD: 0.875 g/cm2 T-Score: - 1.2 Z-Score: - 0.2 RESULT TOTAL HIP Bilateral Total Hip BMD: 0.943 g/cm2 T-Score: - 0.5 Z-Score: + 0.1 WHO criteria: Normal: T-score at or above -1 SD Osteopenia: T-score between -1.1 and -2.4 SD Osteoporosis: T-score at or below -2.5 SD FRAX RISK CALCULATION (USED FOR OSTEOPENIA ONLY): 10-year probability of major osteoporotic fracture: 15.4%. 10-year probability of hip fracture: 1.6%. Katherine Guzman DO DEXA Final Resul t * XR MAMMO BILAT SCREENING (02/22/2021 10:19 AM CDT) Anatomical Region Laterality Modality BREASTS, Breast Left, Breast Right Bilateral Mammography Impressions 02/22/2021 5:36 PM CDT There is no radiographic evidence for malignancy. Recommend annual mammograms. MAMMOGRAM ASSESSMENT: ACR 2 Benign PATIENTS: You will also receive a letter with your examination results in an easy to read format. If you have questions about your results, please contact your referring provider. Narrative 02/22/2021 5:36 PM CDT XR MAMMO BILAT SCREENING [[id number]] CLINICAL HISTORY: This is an asymptomatic 65 y.o. patient. INDICATION FOR EXAM: Mammogram Screening. TECHNIQUE: CC & MLO views were obtained. This study was evaluated with the assistance of Computer-Aided Detection. COMPARISON FILMS: This is a baseline study. FINDINGS: The breasts are almost entirely fatty. No suspicious masses or microcalcifications. Intramammary lymph node within left breast. Katherine Valdovinostken DO MAMMO Final Resul t * OCCULT BLOOD IFOBT STOOL (02/09/2021 1:07 PM CDT) STOOL BLOOD ,IFOBT Negative Negative 02/09/2021 1:21 PM CDT [facility] Stool STOOL SPECIMEN / Unknown Non-Blood / Unknown 02/09/2021 1:07 PM CDT 02/09/2021 1:07 PM CDT Katherine Guzman DO LABORATORY Final Resul t Performing Organization Address [facility]/ZIP Co de Phone Number [facility] [address] [place] [place] [address], * ANTI HCV (02/07/2021 9:32 AM CDT) HEPATITIS C ANTIBODY Non-React eduin Non-React eduin 02/07/2021 10:20 PM CDT [facility] TRAL LABORATORY Comment:Antibodies to HCV no t detected; does not exclude the possibility of exposure to HCV. Blood BLOOD SPECIMEN / Unknown Venipuncture / Unknown 02/07/2021 9:32 AM CDT 02/07/2021 9:32 AM CDT Katherine Guzman DO SEND OUTS Final Resul t Performing Organization Address [facility] Co de Phone Number [facility] [address] [place] [address], from Last 3 Months or Most Recently Relevant to Health Maintenance Insurance [facility] MEDICARE ADVANTAGE MR MEDICARE PART A HB ONLY MEDICARE PART B HB ONLY WORKERS COMP Member Subscriber Plan / Payer (Ef fective 2013-Present) Name:Peter Encarnacion Relation to Subscriber:Employee Name:[id number] Date of :2000 (Home) Address: [address] [place] [address] Payer ID:Not on file Group ID:Not on file Type:Not on file [id number] Address: [address] [place] [id number] Advance Directives * Full Code (Latest Code Status on File) Date Activated Date Inactivated Comments 08/01/2005 4:56 PM 08/04/2005 7:22 PM * Full Code Date Activated Date Inactivated Comments 08/01/2005 10:19 AM 08/01/2005 4:56 PM * Full Code Date Activated Date Inactivated Comments 08/01/2005 5:54 AM 08/01/2005 10:19 AM Care Teams Glass Embosser Relationship Specialty Start Date End Date Pcp, No . PCP - General 10/26/15
--- OUTSIDE RECORDS SUMMARY | 2025-05-22 18:39 | XMS_ITS | Clinical Summary ---
Author Organization [facility] Address [address] [place] [address] Care Team Providers Care Telecommunications Manager Name Role Phone None Reported, Pcp Primary Care Provider Unavail able Source Comments Patient records contain information from all sites at [facility]. For routine questions regarding patient records, call [phone] during business hours, M-F 8:00 AM - 5:00 PM Central Time. Record requests for emergency care only can be directed to [phone] at any time.[facility] Allergies No known active allergies Medications lisinopriL (PRINIVIL,ZESTR IL) 10 mg tablet Take 1 tablet (10 mg total) by mouth daily. 90 tablet 3 07/16/2023 Active atorvastatin (Lipitor) 10 mg tablet Take 1 tablet (10 mg total) by mouth daily. Patient needs Office Visit for further refills. 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 FRAX 15.4%. Recommend basic bone health and repeat in 3-5 years. Dyslipidemia NOS 02/08/2021 PreDiabetes 02/08/2021 Gastroesophageal Reflux Disease NOS 10/14/2006 Anemia Iron Deficiency 08/04/2005 Hypertension Essential Primary 02/22/2005 Overview (07/16/2023): Epic Osteoarthritis 02/22/2005 Overview (07/16/2023): Epic Social History Tobacco Use Types Packs/Day Years Used Date Smoking Tobacco: Former Cigarettes Smokeless Tobacco: Never Tobacco Cessation:Counseling Given: Not Answered Alcohol Use Standard Drinks/Week Comments Yes 0 (1 standard drink = 0.6 oz pur e alcohol) Comments No Sex and Gender Information Value Date Recorded Sex Assigned at Not on file Legal Sex Female 3:15 PM CDT Gender Identity Not on file Sexual Orientation Not on file Last Filed Vital Signs Vital Sign Reading Time Taken Comments Blood Pressure 157/91 07/16/2023 4:15 PM CDT Pulse 82 07/16/2023 4:15 PM CDT Temperature 36.6 C (97.9 F) 07/16/2023 4:15 PM CDT Respiratory Rate 20 06/23/2023 3:22 PM CDT Oxygen Saturation 100% 07/16/2023 4:15 PM CDT Inhaled Oxygen Concentration - - Weight 63.8 kg (140 lb 10.5 oz) 07/16/2023 4:15 PM CDT Height 158.7 cm (5' 2.48) 07/16/2023 4:15 PM CD T Body Mass Index 25.33 07/16/2023 4:15 PM CDT Plan of Treatment Health Maintenance Due Date Last Done Comments CT Colonography 1955 Colonoscopy 1955 FIT 1955 Hepatitis C Screening 1955 RSV vaccine - (32-36 weeks) or 60+ years (1 - Risk 60-74 years 1-dose series) 2015 Pneumococcal vaccine (50+ years) (2 of 2 - PCV) 02/07/2022 02/07/2021 Mammogram 02/22/2022 02/22/2021, 02/13, 10/27/2009 Office Visit for Blood Pressure Check / Re-check 10/16/2023 07/16/2023 Depression Screening (Annual PHQ-2) 09/15/2024 Fall Risk Screen (Annual) 09/15/2024 Fasting Glucose for Diabetes Screening 02/05/2025 02/06/2024, 01/07/2024, 06/23/2023, Additional history exists Potassium Level 02/05/2025 02/06/2024, 12/15, 06/23/2023, Additional history exists Sodium Level 02/05/2025 02/06/2024, 12/15, 06/23/2023, Additional history exists Creatinine Level (Kidney Function Test) 03/02/2025 03/02/2024, 02/06/2024, 01/07/2024, Additional history exists COVID-19 Vaccine ( season) 2025 08/28/2021, 10/27/2020, 10/06/2020 Influenza Vaccine (#1) 2025 , 06/05/2019, 08/05/2016, Additional history exists Lipid (Cholesterol) Screening 02/07/2026 02/07/2021 Cologuard 03/03/2027 03/03/2024 Colorectal Cancer Screening 03/03/2027 DTaP,Tdap,and Td Vaccines (2 - Td or Tdap) 09/13/2029 09/13/2019, 09/02/2000, 06/22/1991 Zoster Vaccines Completed 10/05/2019, 06/05/2019 Bone Density Scan (Osteoporosis Screen) Discontinued 02/22/2021 IPV Vaccines Aged Out No longer eligi ble based on patient's age to complete this topic Procedures Procedure Name Priority Date/Time Associated Diagnosis Comments COLOGUARD Routine 03/03/2024 8:30 AM CDT Screening Cancer Colon COMPREHENSIVE METABOLIC PANEL, S/P STAT 06/23/2023 4:32 PM CDT from Last 3 Months or Most Recently Relevant to Health Maintenance Results * Cologuard - Sent Out Lab (03/03/2024 8:30 AM CDT) Pathologist [facility] Result Negative Negative 03/12/2024 12:30 PM CDT [facility] Comment: NEGATIVE TEST RESULT. A negative Cologuard result indicates a low likelihood that a colorectal cancer (CRC) or advanced adenoma (adenomatous polyps with more advanced pre-malignant features) is present. The chance that a person with a negative Cologuard test has a colorectal cancer is less than 1 in 1500 (negative predictive value >99.9%) or has an advanced adenoma is less than 5.3% (negative predictive value 94.7%). These data are based on a prospective cross-sectional study of 10,000 individuals at average risk for colorectal cancer who were screened with both Cologuard and colonoscopy. (Landon Fuentes al, N Engl J Med 2014;370(14):7126-5468) The normal value (reference range) for this assay is negative. COLOGUARD RE-SCREENING RECOMMENDATION: Periodic colorectal cancer screening is an important part of preventive healthcare for asymptomatic individuals at average risk for colorectal cancer. Following a negative Cologuard result, the [place] Cancer Society and U.S. Multi-Society Task Force screening guidelines recommend a Cologuard re-screening interval of 3 years. References: [place] [employer] Society Guideline for Colorectal Cancer Screening: https://www.cancer.org/cancer/duiil-lnhhtz-ivnhrw/detection- diagnosis-staging/acs-recommendations.html.; Murali DK, Juan CR, Tan WalkerK, Colorectal Cancer Screening: Recommendations for Physicians and Patients from the U.S. Multi-Society Task Force on Colorectal Cancer Screening , Am J Gastroenterology 2017; 112:7605-3631. TEST DESCRIPTION: Composite algorithmic analysis of stool DNA-biomarkers with hemoglobin immunoassay. Quantitative values of individual biomarkers are not reportable and are not associated with individual biomarker result reference ranges. Cologuard is intended for colorectal cancer screening of adults of either sex, 45 years or older, who are at average-risk for colorectal cancer (CRC). Cologuard has been approved for use by the U.S. FDA. The performance of Cologuard was established in a cross sectional study of average-risk adults aged 50-84. Cologuard performance in patients ages 45 to 49 years was estimated by sub-group analysis of near-age groups. Colonoscopies performed for a positive result may find as the most clinically significant lesion: colorectal cancer [4.0%], advanced adenoma (including sessile serrated polyps greater than or equal to 1cm diameter) [20%] or non- advanced adenoma [31%]; or no colorectal neoplasia [45%]. These estimates are derived from a prospective cross-sectional screening study of 10,000 individuals at average risk for colorectal cancer who were screened with both Cologuard and colonoscopy. (Landon Fuentes al, N Engl J Med 2014;370(14):6025-7409.) Cologuard may produce a false negative or false positive result (no colorectal cancer or precancerous polyp present at colonoscopy follow up). A negative Cologuard test result does not guarantee the absence of CRC or advanced adenoma (pre-cancer). The current Cologuard screening interval is every 3 years. ([place] Cancer Society and U.S. Multi-Society Task Force). Cologuard performance data in a 10,000 patient pivotal study using colonoscopy as the reference method can be accessed at the following location: www.[employer]/results. Additional description of the Cologuard test process, warnings and precautions can be found at www.[facility] Technologyrd.com. Stool (Stool) 03/03/2024 8:3 0 AM CDT 03/05/2024 9:55 AM CDT us Edilberto Uribe M.D. LAB BODY FLUIDS AND STOOL S ORDERABLES Final Result [facility] [address] [place] [address] EX[facility] [address] [place] [address], [address] [place] [address] * (ABNORMAL) Comprehensive Metabolic Panel (06/23/2023 4:32 PM CDT) Potassium, P 3.6 3.6 - 5.2 mmol/L 06/23/2023 4:53 PM CDT [facility] Sodium, P 130(L) 135 - 145 mmol/L 06/23/2023 4:53 PM CDT [facility] Chloride, P 94(L) 98 - 107 mmol/L 06/23/2023 4:53 PM CDT [facility] Bicarbonate, P 23 22 - 29 mmol/L 06/23/2023 4:53 PM CDT [facility] Anion Gap, P 13 7 - 15 06/23/2023 4:53 PM CDT [facility] BUN (Blood Urea Nitrogen), P 8 6 - 21 mg/dL 06/23/2023 4:53 PM CDT [facility] Creatinine 0.75 0.59 - 1.04 mg/dL 06/23/2023 4:53 PM CDT [facility] Estimated GFR (eGFR) 87 >=60 mL/min/BS A 06/23/2023 4:53 PM CDT [facility] Comment: Estimated GFR calculated using the 2020 CKD_EPI creatinine equation. Calcium, Total, P 8.6(L) 8.8 - 10.2 mg/dL 06/23/2023 4:53 PM CDT [facility] Glucose, P 100 70 - 140 mg/dL 06/23/2023 4:53 PM CDT [facility] Protein, Total, P 6.2(L) 6.3 - 7.9 g/dL 06/23/2023 4:53 PM CDT [facility] Albumin, P 3.8 3.5 - 5.0 g/dL 06/23/2023 4:53 PM CDT [facility] Aspartate Aminotransferase (AST), P 23 8 - 43 U/L 06/23/2023 4:53 PM CDT [facility] Alkaline Phosphatase, P 64 35 - 104 U/L 06/23/2023 4:53 PM CDT [facility] Alanine Aminotransferase (ALT), P 14 7 - 45 U/L 06/23/2023 4:53 PM CDT [facility] Bilirubin, Total, P 0.3 0.0 - 1.2 mg/dL 06/23/2023 4:53 PM CDT [facility] Blood (Blood, Venous) 06/23/2023 4:32 PM CDT 06/23/2023 4:34 PM CDT us Xavi Spivey P.A.-C. LAB BLOOD ADD-ON Final R esult [facility] [address] [place] [id number], [facility] CNFL [facility] in [address] [address] from Last 3 Months or Most Recently Relevant to Health Maintenance Insurance [facility] Care Teams Telecommunications Manager Relationship Specialty Start Date End Date None Reported, Pcp PCP - General Family Medicine 11/26/24
--- OUTSIDE RECORDS SUMMARY | 2025-05-22 18:39 | XMS_ITS | Clinical Summary ---
Author Organization [place] Address [address] [place] [id number] Care Team Providers Care Csr Retail Name Role Phone [facility], 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 Gender Identity Not on file Sexual Orientation Not on file Last Filed Vital Signs Vital Sign Reading Time Taken Comments Blood Pressure 189/104 09/13/2019 11:22 AM DOUBLE SURFACE OPERATOR Pulse 87 09/13/2019 10:16 AM DOUBLE SURFACE OPERATOR Temperature 36.4 C (97.6 F) 09/13/2019 10:16 AM DOUBLE SURFACE OPERATOR Respiratory Rate 20 09/13/2019 11:22 AM DOUBLE SURFACE OPERATOR Oxygen Saturation 99% 09/13/2019 11:22 AM DOUBLE SURFACE OPERATOR Inhaled Oxygen Concentration - - Weight - - Height - - Body Mass Index - - Plan of Treatment Not on [place] [address] Care Teams Csr Retail Relationship Specialty Start Date End Date [address] [address] PCP - General 09/13/19
[2025-05-22 21:04] LABS: Appearance Urine Clear (Clear)
[2025-05-22 21:08] LABS: Hematocrit* 35.0 % (33.0-51.0); Hemoglobin* 11.8 gm/dL (12.0-16.0); Immature Granulocytes Abs Auto 0.01 K/uL (0.00-0.30); Immature Granulocytes Pct Auto 0.1 %; Mean Corpuscular HGB Conc 34 gm/dL (32-36); Mean Corpuscular Hemoglobin 31 pg (26-34); Mean Corpuscular Volume 90 fL (80-100); RDW Coefficient of Variation % 12.4 % (11.5-15.5); Red Blood Count* 3.87 m/uL (4.00-5.20); White Blood Count* 6.90 K/uL (4.50-11.00)
--- NOTE | 2025-05-22 21:11 | ED.FALL ---
HPI - Fall General Date Seen: 05/22/25 Chief Complaint: Fall/Minor Trauma Stated Complaint: shortness of breath Time Seen by Provider: 05/22/25 19:03 Source: patient Mode of arrival: ambulatory Limitations: no limitations History of Present Illness HPI Narrative: Patient is 69-year-old female presenting to emergency department after a fall. She states she got lightheaded and fell down. Denies loss of consciousness. Denies hitting her head. Denies any pain currently. States she has been doing with lightheadedness for the past few days. States whenever she stands up she will feel very lightheaded and feels like she is going to pass out. When she walks she will have to hold onto the wall and sit down as soon as she can. States the room is not feel like it is spinning. Has never had symptoms like this before. Denies any associated chest pain, shortness of breath, fevers, chills, diarrhea, constipation, abdominal pain, headache, dysuria. Denies any recent changes to her medication. Does have a history of high blood pressure. Related Data Home Medications ?Medication ?Instructions ?Recorded ?Confirmed atorvastatin 10 mg tablet 10 mg PO DAILY 09/24/23 09/24/23 lisinopril 10 mg tablet 10 mg PO DAILY 09/24/23 09/24/23 atorvastatin 40 mg tablet 40 mg PO DAILY 05/22/25 05/22/25 furosemide 20 mg tablet 20 mg PO DAILY PRN 05/22/25 05/22/25 metoprolol succinate 25 mg 25 mg PO DAILY 05/22/25 05/22/25 tablet,extended release 24 hr Allergies Allergy/AdvReac Type Severity Reaction Status Date / Time No Known Drug Allergies Allergy Verified 09/24/23 19:42 Review of Systems Status of ROS: Reports: 10 or more systems reviewed and unremarkable except as noted in History and below PFS PFS Social History Smoking Status: Never smoker How often do you have a drink containing alcohol: never AUDIT-C Alcohol total score: 0 Non-prescribed substance use: denies use Exam Narrative: Exam Narrative: Const: Well-nourished, Well-developed, in mild distress Eyes: PERRL, no conjunctival injection, and symmetrical lids HENT: Atraumatic external nose and ears. Moist mucous membranes. Neck: Symmetric, trachea midline, No thyromegaly. CVS: RRR, No murmurs or gallops. Peripheral pulses 2+ and equal in all extremities RESP: Unlabored respiratory effort. Clear to auscultation bilaterally. GI: Nontender/Nondistended, No rebound or guarding. MSK:Extremities w/o deformity, Normal Active ROM Skin: Warm, Dry. No rashes or lesions. Neuro: Normal Muscle tone, No focal neurological deficits. Psych: Awake, Alert, & Oriented x3. Appropriate mood and affect. Const: Vital Signs, click to edit/add: Vital Signs - 24 hr 05/22/25 18:51 05/22/25 20:19 05/22/25 21:00 Temperature 98.3 F Pulse Rate Pulse Rate [Pulse Oximeter] 92 Pulse Rate [orthos tatic lying] 85 Pulse Rate [orthos tatic sitting Puls e Oximeter] 87 Pulse Rate [orthos tatic standing Rig ht Pulse Oximeter] 101 H Respiratory Rate 18 17 Blood Pressure Blood Pressure [Ri ght Upper Arm] 97/64 Blood Pressure [or thostatic lying Le ft Arm] 106/62 Blood Pressure [or thostatic sitting] 121/65 Blood Pressure [or thostatic standing ] 80/59 L Pulse Oximetry 97 Oxygen Delivery Me thod Room Air 05/22/25 21:04 05/22/25 21:05 05/22/25 21:15 Temperature Pulse Rate 88 Pulse Rate [Pulse Oximeter] Pulse Rate [orthos tatic lying] Pulse Rate [orthos tatic sitting Puls e Oximeter] Pulse Rate [orthos tatic standing Rig ht Pulse Oximeter] Respiratory Rate 15 16 Blood Pressure 106/62 121/65 Blood Pressure [Ri ght Upper Arm] Blood Pressure [or thostatic lying Le ft Arm] Blood Pressure [or thostatic sitting] Blood Pressure [or thostatic standing ] Pulse Oximetry 100 Oxygen Delivery Me thod 05/22/25 21:30 05/22/25 21:45 05/22/25 21:46 Temperature Pulse Rate 93 87 87 Pulse Rate [Pulse Oximeter] Pulse Rate [orthos tatic lying] Pulse Rate [orthos tatic sitting Puls e Oximeter] Pulse Rate [orthos tatic standing Rig ht Pulse Oximeter] Respiratory Rate 18 12 Blood Pressure 104/57 L Blood Pressure [Ri ght Upper Arm] Blood Pressure [or thostatic lying Le ft Arm] Blood Pressure [or thostatic sitting] Blood Pressure [or thostatic standing ] Pulse Oximetry 94 100 96 Oxygen Delivery Me thod 05/22/25 21:52 05/22/25 22:00 05/22/25 22:01 Temperature Pulse Rate 61 84 86 Pulse Rate [Pulse Oximeter] Pulse Rate [orthos tatic lying] Pulse Rate [orthos tatic sitting Puls e Oximeter] Pulse Rate [orthos tatic standing Rig ht Pulse Oximeter] Respiratory Rate 16 16 16 Blood Pressure 104/57 L 117/64 Blood Pressure [Ri ght Upper Arm] Blood Pressure [or thostatic lying Le ft Arm] Blood Pressure [or thostatic sitting] Blood Pressure [or thostatic standing ] Pulse Oximetry 95 98 98 [facility] 05/22/25 22:11 05/22/25 22:12 05/22/25 22:14 Temperature Pulse Rate 87 86 90 Pulse Rate [Pulse Oximeter] Pulse Rate [orthos tatic lying] Pulse Rate [orthos tatic sitting Puls e Oximeter] Pulse Rate [orthos tatic standing Rig ht Pulse Oximeter] Respiratory Rate 16 16 16 Blood Pressure 119/60 122/72 114/66 Blood Pressure [Ri ght Upper Arm] Blood Pressure [or thostatic lying Le ft Arm] Blood Pressure [or thostatic sitting] Blood Pressure [or thostatic standing ] Pulse Oximetry 95 98 96 Oxygen Delivery Pr thod 05/22/25 22:15 05/22/25 22:17 05/22/25 22:28 Temperature Pulse Rate 85 87 Pulse Rate [Pulse Oximeter] Pulse Rate [orthos tatic lying] 93 Pulse Rate [orthos tatic sitting Puls e Oximeter] 85 Pulse Rate [orthos tatic standing Rig ht Pulse Oximeter] 85 Respiratory Rate 16 18 Blood Pressure 123/67 Blood Pressure [Ri ght Upper Arm] Blood Pressure [or thostatic lying Le ft Arm] 114/66 Blood Pressure [or thostatic sitting] 122/72 Blood Pressure [or thostatic standing ] 119/60 Pulse Oximetry 99 98 Oxygen Delivery Me thod Course Vital Signs Vital signs: Initial Vital Signs Temperature 98.3 F 05/22/25 18:51 Temperature Source Temporal Artery Scan 05/22/25 18:51 Pulse Rate 92 05/22/25 18:51 Respiratory Rate 18 05/22/25 18:51 Blood Pressure 97/64 05/22/25 18:51 Blood Pressure Mean 75 05/22/25 18:51 Pulse Oximetry 97 05/22/25 18:51 Oxygen Delivery Method Room Air 05/22/25 18:51 Vital Signs Temperature 98.3 F 05/22/25 18:51 Pulse Rate 92 05/22/25 18:51 Respiratory Rate 18 05/22/25 18:51 Blood Pressure 97/64 05/22/25 18:51 Pulse Oximetry 97 05/22/25 18:51 Oxygen Delivery Method Room Air 05/22/25 18:51 Temperature 98.3 F 05/22/25 18:51 Pulse Rate 93 05/22/25 22:28 Respiratory Rate 18 05/22/25 22:17 Blood Pressure 114/66 05/22/25 22:28 Pulse Oximetry 98 05/22/25 22:17 Oxygen Delivery Method Room Air 05/22/25 21:52 Medications Administered Medications: Discontinued Medications Generic Name Dose Route Start Last Admin Trade Name Can PRN Reason Stop Dose Admin Lactated Ringer's 1,000 mls @ 1,000 mls/hr 05/22/25 20:18 05/22/25 21:29 Lactated Ringers 1000 Ml IV 05/22/25 21:17 Not Given .Q1H ONE Sodium Chloride 1,000 mls @ 1,000 mls/hr 05/22/25 21:30 05/22/25 22:21 0.9 % Sodium Chloride 1000 Ml IV 05/22/25 22:29 Infused .Q1H [facility] Infusion Ceftriaxone Sodium 1 gm/ 100 mls @ 200 mls/hr 05/22/25 21:23 05/22/25 22:01 Sodium Chloride IVPB 05/22/25 21:24 Infused ONCE ONE Infusion MDM - Fall MDM Narrative Medical decision making narrative: Patient is a 69-year-old female presenting to the emergency department for what sounds like orthostatic hypotension and presyncopal symptoms. Will give her L fluids for possible dehydration. No history of blood clots but she cannot be perked out will do a D-dimer. Will also do a CBC, EKG, magnesium, urinalysis, BMP. Orthostatic blood pressures will be checked. Fluids were ordered for possible dehydration. I was able to look at [facility] charts and does show she has hypertrophic cardiomyopathy. Orthostatics were done showing her blood pressure dropped from a systolic 106 to a systolic 80. Her heart rate also him increased from 85 to101. She was feeling lightheaded. Lab work returned showing she does have a UTI. She also has acute kidney injury. Lab work on [facility] shows her creatinine was 1.13 2 days ago and is 2.9 today. Her sodium has also gone from 136 2 days ago to 126 today. Viral swabs were negative. Age adjusted D-dimer within normal limits. Rocephin was ordered for her UTI. Troponin came back elevated at 0.09. Her EKG shows a left bundle-branch block this is persistent with her previous EKGs according to [facility] chart review of previous cardiology notes. No other concerning finding seen. Repeat orthostatics after fluids are now within normal limits and she was asymptomatic. I did speak to Cardiology at [place] about this patient. I spoke to Dr. Evans, who states he does believe the patient is safe to keep here in [place]. Repeat point of care troponin went down. Lab Data Labs: Lab Results 05/22/25 05/22/25 05/22/25 Range/Units 20:18 20:19 21:15 WBC 6.90 (4.50-11.00) K/uL RBC 3.87 L (4.00-5.20) m/uL Hgb 11.8 L (12.0-16.0) gm/dL Hct 35.0 (33.0-51.0) % MCV 90 (80-100) fL MCH 31 (26-34) pg MCHC 34 (32-36) gm/dL RDW Coeff of Agnes 12.4 (11.5-15.5) % Plt Count 229 (140-440) K/uL Neut % (Auto) 71.0 (42.0-72.0) % Lymph % (Auto) 17.8 L (20-44) % [place] % (Auto) 10.1 (0.0-11.0) % Eos % (Auto) 0.6 (0.0-7.0) % Baso % (Auto) 0.4 (0.0-3.0) % Neut # (Auto) 4.89 (1.7-7.0) K/uL Lymph # (Auto) 1.20 (0.90-2.90) K/uL [place] # (Auto) 0.70 (0.00-0.90) K/UL Eos # (Auto) 0.04 (0.00-0.50) K/uL Baso # (Auto) 0.03 (0.00-0.30) K/uL Abs Immat Gran (auto) 0.01 (0.00-0.30) K/uL Imm/Tot Granulo (auto) 0.1 % D-Dimer Quant (PE/DVT) 0.56 H (0.00-0.50) ug/ml Sodium 126 L (135-149) mmol/L Potassium 4.0 (3.6-5.1) mmol/L Chloride 88 L (96-114) mmol/L Carbon Dioxide 28 (20-32) mmol/L Anion Gap 10 (7-15) mEq/L BUN 28 (7-30) mg/dL Creatinine 2.9 H (0.5-1.5) mg/dL Estimated GFR 17 ml/min Glucose 121 H (60-115) mg/dL Calcium 10.7 H (8.4-10.6) mg/dL Magnesium 1.5 (1.5-2.6) mg/dL Troponin I 0.09 H* (0.01-0.04) ng/mL Urine Color Yellow (Yellow) Urine Appearance Clear (Clear) Urine pH 5.5 (5.0-8.5) Ur Specific [place] 1.020 (1.000-1.030) Urine Protein 2+ A (Negative) Urine Glucose (UA) Negative (Negative) Urine Ketones Trace A (Negative) Urine Blood Trace-lysed A (Negative) Urine Nitrite Negative (Negative) Urine Bilirubin 1+ A (Negative) Urine Urobilinogen 0.2 (0.2-1.0) Ur Leukocyte Esterase 3+ A (Negative) Urine RBC 5-10 A (0-2) Urine WBC >100 A (0-5) Ur Squamous Epith Cells Few (None-Few) Amorphous Sediment Moderate A (None) Urine Bacteria Few A (None) SARS-CoV-2 (PCR) Negative SARS-CoV-2 (Negative) Influenza Type A (PCR) Negative PCR FLU A (Negative) Influenza Type B (PCR) Negative PCR FLU B (Negative) RSV (PCR) Negative PCR RSV (Negative) Lab Acknowledgement Test Added POC Troponin I 0.06 H (0.01-0.04) ng/ml 05/22/25 Range/Units 23:45 WBC (4.50-11.00) K/uL RBC (4.00-5.20) m/uL Hgb (12.0-16.0) gm/dL Hct (33.0-51.0) % MCV (80-100) fL MCH (26-34) pg MCHC (32-36) gm/dL RDW Coeff of Agnes (11.5-15.5) % Plt Count (140-440) K/uL Neut % (Auto) (42.0-72.0) % Lymph % (Auto) (20-44) % [place] % (Auto) (0.0-11.0) % Eos % (Auto) (0.0-7.0) % Baso % (Auto) (0.0-3.0) % Neut # (Auto) (1.7-7.0) K/uL Lymph # (Auto) (0.90-2.90) K/uL [place] # (Auto) (0.00-0.90) K/UL Eos # (Auto) (0.00-0.50) K/uL Baso # (Auto) (0.00-0.30) K/uL Abs Immat Gran (auto) (0.00-0.30) K/uL Imm/Tot Granulo (auto) % D-Dimer Quant (PE/DVT) (0.00-0.50) ug/ml Sodium (135-149) mmol/L Potassium (3.6-5.1) mmol/L Chloride (96-114) mmol/L Carbon Dioxide (20-32) mmol/L Anion Gap (7-15) mEq/L BUN (7-30) mg/dL Creatinine (0.5-1.5) mg/dL Estimated GFR ml/min Glucose (60-115) mg/dL Calcium (8.4-10.6) mg/dL Magnesium (1.5-2.6) mg/dL Troponin I (0.01-0.04) ng/mL Urine Color (Yellow) Urine Appearance (Clear) Urine pH (5.0-8.5) Ur Specific [place] (1.000-1.030) Urine Protein (Negative) Urine Glucose (UA) (Negative) Urine Ketones (Negative) Urine Blood (Negative) Urine Nitrite (Negative) Urine Bilirubin (Negative) Urine Urobilinogen (0.2-1.0) Ur Leukocyte Esterase (Negative) Urine RBC (0-2) Urine WBC (0-5) Ur Squamous Epith Cells (None-Few) Amorphous Sediment (None) Urine Bacteria (None) SARS-CoV-2 (PCR) (Negative) Influenza Type A (PCR) (Negative) Influenza Type B (PCR) (Negative) RSV (PCR) (Negative) Lab Acknowledgement POC Troponin I 0.05 H (0.01-0.04) ng/ml ECG Data Attestation: I personally reviewed and interpreted this ECG as follows: Prior ECG tracings: not available for review Interpretation: Sinus rhythm with rate 81 beats per minute, normal OH interval, normal axis, left bundle-branch block with acceptable discordance, no signs of ST or T-wave abnormalities Discharge Plan Discharge Clinical Impression: Acute UTI, Acute hyponatremia, ISH (acute kidney injury), Dehydration Patient Disposition: Admitted As Inpatient Condition: Improved
[2025-05-22 21:19] LABS: Lymphocytes Absolute Auto 1.20 K/uL (0.90-2.90); Slide Review Reflex No
[2025-05-22 21:20] LABS: Chloride* 88 mmol/L (96-114); Sodium* 126 mmol/L (135-149)
[2025-05-22 21:21] LABS: Potassium* 4.0 mmol/L (3.6-5.1)
[2025-05-22 21:23] LABS: Blood Urea Nitrogen* 28 mg/dL (7-30); Creatinine* 2.9 mg/dL (0.5-1.5); Estimated Glomerular Filt Rate 17 ml/min
[2025-05-22 21:24] LABS: Anion Gap 10 mEq/L (7-15); Calcium* 10.7 mg/dL (8.4-10.6); Carbon Dioxide* 28 mmol/L (20-32); Glucose* 121 mg/dL (60-115)
[2025-05-22 21:26] LABS: D Dimer Quantitative* 0.56 ug/ml (0.00-0.50)
[2025-05-22] MEDS: cefTRIAXone 1 GM in 0.9 % SODIUM CHLORIDE Mini-bag 100 ML IVPB (21:28)
[2025-05-22 21:49] LABS: PCR FLU A Negative PCR FLU A (Negative); PCR FLU B Negative PCR FLU B (Negative); PCR RSV Negative PCR RSV (Negative); SARS PCR* Negative SARS-CoV-2 (Negative)
--- NOTE | 2025-05-22 22:11 | CRLHL7_ITS ---
For Patients: As a result of the Century Cures Act, medical imaging exams and procedure reports are released immediately into your electronic medical record. You may view this report before your referring provider. If you have questions, please contact your health care provider. INDICATION: Near-syncope TECHNIQUE: Chest 2 views. COMPARISON: Chest radiograph on September 24, 2023 FINDINGS: Cardiovascular and mediastinum: Cardiomegaly, stable. Hiatal hernia. Lungs and pleural spaces: Hyperexpansion of the lungs with flattening of the diaphragm. No focal pulmonary consolidation. No pleural effusion or pneumothorax. Bones and soft tissues: Exaggerated thoracic kyphosis. Diffuse osseous demineralization with multilevel degenerative changes of the spine. IMPRESSION: No acute cardiopulmonary process. Dictated by Kaylee Knight MD @ 05/22/2025 10:56:31 PM (Electronically Signed)
[2025-05-23] VITALS (13 sets, daily range): BP systolic 70–132; BP diastolic 47–79; PULSE 73–97; RESP 14–18; TEMP 36.5–37.1; O2SAT 96–100; BMI 24.0; BMI 24.1
[2025-05-23] LABS: Troponin, Point-of-Care* 0.06 ng/ml (0.01-0.04)
[2025-05-23 00:07] LABS: Troponin, Point-of-Care* 0.05 ng/ml (0.01-0.04)
--- NOTE | 2025-05-23 01:09 | W.PM.TELEH&P ---
Telehealth- H&P: HPI History of Present Illness Date Seen: 05/23/25 Chief complaint: shortness of breath Narrative: Charisse Huntley is seen as an Interactive Telehealth visit. Charisse Huntley is a 69 year old female who was seen in the ER after a fall. The patient is a very active 69 female who has a history of hypertrophic cardiomyopathy, hypertension and hyperlipidemia who presented with significant lightheadedness over the last 3 to 4 days. She states prior to this current episode she would have some occasional orthostatic symptoms when she would sit up too fast she would feel lightheaded but otherwise she was doing well. But over the last 3 days or so she says she got very lightheaded and dizzy with activity. She did not have any chest pain or shortness of breath. She did have some occasional nausea. Her 's been worried about her because she has been losing weight, she attributes it to being more active than usual. She spends a lot of time outside gardening and riding her horse. However over the last several days she has been so lightheaded that she is has to steady herself on a wall or sit down quickly. She was going to the [employer] today and got so lightheaded she tumbled into the but displayed at the store. She did not have any injury. She denies any loss of consciousness. She denies any vertigo. Has not had any fevers or chills. She has not had any dysuria or urinary frequency. She has not had any recent medication changes although she does report that she she has been taking her diuretic scheduled rather than as needed for a while because it is too easy to forget if she takes it just as needed. Review of Systems Status of ROS: Reports: 10 or more systems reviewed and unremarkable except as noted in History and below [facility] Medical History (Updated 05/23/25 @ 01:17 by Rivas Izquierdo MD) Hyperlipidemia ?E78.5 - Hyperlipidemia, unspecified (ICD-10) Hypertension ?I10 - Essential (primary) hypertension (ICD-10) Hypertrophic cardiomyopathy ?I42.2 - Other hypertrophic cardiomyopathy (ICD-10) Social History Smoking Status: Never smoker How often do you have a drink containing alcohol: never AUDIT-C Alcohol total score: 0 Non-prescribed substance use: denies use Meds Home Medications and Allergies Home Medications ?Medication ?Instructions ?Recorded ?Confirmed ?Type atorvastatin 10 mg tablet 10 mg PO DAILY 09/24/23 09/24/23 History lisinopril 10 mg tablet 10 mg PO DAILY 09/24/23 09/24/23 History atorvastatin 40 mg tablet 40 mg PO DAILY 05/22/25 05/22/25 History furosemide 20 mg tablet 20 mg PO DAILY PRN 05/22/25 05/22/25 History metoprolol succinate 25 mg 25 mg PO DAILY 05/22/25 05/22/25 History tablet,extended release 24 hr Allergies Allergy/AdvReac Type Severity Reaction Status Date / Time No Known Drug Allergies Allergy Verified 09/24/23 19:42 Exam Narrative Exam Narrative: Physical Exam GENERAL: ?vital signs reviewed, well developed and nourished, in no distress HEENT: pupils are equal round, extraocular movements are grossly within normal limits and oral mucosa is dry NECK: Supple without lymphadenopathy or thyromegaly according to nursing staff examination observation HEART: Regular rate and rhythm without any rubs, murmurs, or gallops. LUNGS: Clear to auscultation bilaterally with good air movement throughout ABDOMEN: Observation from nurse assisted exam, abdomen appears soft, nontender, and nondistended, with inguinal henria EXTREMITIES: Strength and sensation is observed to be grossly within normal limits in the upper and lower extremities.? No focal strength deficit is observed. SKIN:? Observed warm and dry with color normal Const Vital Signs, click to edit/add: Vital Signs - 24 hr 05/22/25 18:51 05/22/25 20:19 05/22/25 21:00 Temperature 98.3 F Pulse Rate Pulse Rate [Pulse Oximeter] 92 Pulse Rate [orthostatic lying] 85 Pulse Rate [orthostatic sitting Pulse Oximeter] 87 Pulse Rate [orthostatic standing Right Pulse Oximeter] 101 H Respiratory Rate 18 17 Blood Pressure Blood Pressure [Right Upper Arm] 97/64 Blood Pressure [orthostatic lying Left Arm] 106/62 Blood Pressure [orthostatic sitting] 121/65 Blood Pressure [orthostatic standing] 80/59 L Pulse Oximetry 97 Oxygen Delivery Method Room Air 05/22/25 21:04 05/22/25 21:05 05/22/25 21:15 Temperature Pulse Rate 88 Pulse Rate [Pulse Oximeter] Pulse Rate [orthostatic lying] Pulse Rate [orthostatic sitting Pulse Oximeter] Pulse Rate [orthostatic standing Right Pulse Oximeter] Respiratory Rate 15 16 Blood Pressure 106/62 121/65 Blood Pressure [Right Upper Arm] Blood Pressure [orthostatic lying Left Arm] Blood Pressure [orthostatic sitting] Blood Pressure [orthostatic standing] Pulse Oximetry 100 Oxygen Delivery Method 05/22/25 21:30 05/22/25 21:45 05/22/25 21:46 Temperature Pulse Rate 93 87 87 Pulse Rate [Pulse Oximeter] Pulse Rate [orthostatic lying] Pulse Rate [orthostatic sitting Pulse Oximeter] Pulse Rate [orthostatic standing Right Pulse Oximeter] Respiratory Rate 18 12 Blood Pressure 104/57 L Blood Pressure [Right Upper Arm] Blood Pressure [orthostatic lying Left Arm] Blood Pressure [orthostatic sitting] Blood Pressure [orthostatic standing] Pulse Oximetry 94 100 96 Oxygen Delivery Method 05/22/25 21:52 05/22/25 22:00 05/22/25 22:01 Temperature Pulse Rate 61 84 86 Pulse Rate [Pulse Oximeter] Pulse Rate [orthostatic lying] Pulse Rate [orthostatic sitting Pulse Oximeter] Pulse Rate [orthostatic standing Right Pulse Oximeter] Respiratory Rate 16 16 16 Blood Pressure 104/57 L 117/64 Blood Pressure [Right Upper Arm] Blood Pressure [orthostatic lying Left Arm] Blood Pressure [orthostatic sitting] Blood Pressure [orthostatic standing] Pulse Oximetry 95 98 98 Oxygen Delivery Method Room Air 05/22/25 22:11 05/22/25 22:12 05/22/25 22:14 Temperature Pulse Rate 87 86 90 Pulse Rate [Pulse Oximeter] Pulse Rate [orthostatic lying] Pulse Rate [orthostatic sitting Pulse Oximeter] Pulse Rate [orthostatic standing Right Pulse Oximeter] Respiratory Rate 16 16 16 Blood Pressure 119/60 122/72 114/66 Blood Pressure [Right Upper Arm] Blood Pressure [orthostatic lying Left Arm] Blood Pressure [orthostatic sitting] Blood Pressure [orthostatic standing] Pulse Oximetry 95 98 96 Oxygen Delivery Method 05/22/25 22:15 05/22/25 22:17 05/22/25 22:28 Temperature Pulse Rate 85 87 Pulse Rate [Pulse Oximeter] Pulse Rate [orthostatic lying] 93 Pulse Rate [orthostatic sitting Pulse Oximeter] 85 Pulse Rate [orthostatic standing Right Pulse Oximeter] 85 Respiratory Rate 16 18 Blood Pressure 123/67 Blood Pressure [Right Upper Arm] Blood Pressure [orthostatic lying Left Arm] 114/66 Blood Pressure [orthostatic sitting] 122/72 Blood Pressure [orthostatic standing] 119/60 Pulse Oximetry 99 98 Oxygen Delivery Method Hospitalist - H&P: Result Labs Labs: Short CBC 05/22/25 Range/Units 20:18 WBC 6.90 (4.50-11.00) K/uL Hgb 11.8 L (12.0-16.0) gm/dL Hct 35.0 (33.0-51.0) % Plt Count 229 (140-440) K/uL BMP 05/22/25 20:18 Sodium 126 L Potassium 4.0 Chloride 88 L Carbon Dioxide 28 BUN 28 Creatinine 2.9 H Glucose 121 H Calcium 10.7 H Cardiac Enzymes 05/22/25 Range/Units 20:18 Troponin I 0.09 H* (0.01-0.04) ng/mL Urine 05/22/25 Range/Units 20:19 Urine Color Yellow (Yellow) Urine Appearance Clear (Clear) Urine pH 5.5 (5.0-8.5) Ur Specific [place] 1.020 (1.000-1.030) Urine Protein 2+ A (Negative) Urine Glucose (UA) Negative (Negative) ECG Interpretation: EKG personally reviewed: Sinus rhythm with left bundle branch block Chest x-ray personally reviewed: No focal opacities Assessment and Plan Assessment and plan (1) Asymptomatic bacteriuria: Status: Acute (2) Unintentional weight loss: Status: Acute (3) Hypercalcemia: Status: Acute (4) Dehydration: Status: Acute (5) ISH (acute kidney injury): Status: Acute (6) Acute hyponatremia: Status: Acute Plan Assessment and Plan Fall Initial encounter No significant injury or loss of consciousness Likely related to orthostatic hypotension Dehydration Acute/subacute hyponatremia Hypercalcemia Acute kidney injury Suspect overdiuresis in the setting of daily diuretic use in setting of taking as needed. There may be component of decrease fluid intake as well Sodium 126 on admission, goal correction 6-8 mill colons in 24 hours, every 4 hours sodium Received fluids in the ER with resolution of orthostatic hypotension Hypercalcemia and hyponatremia should improve with fluid resuscitation Acute kidney injury Baseline creatinine is around 1, creatinine up to 2.9 Holding diuretics and lisinopril If renal function is not back to baseline with IV fluids would consider renal ultrasound Asymptomatic bacteriuria Pyuria Microscopic hematuria No symptoms to suggest urinary tract infection Received ceftriaxone in the ER Hold off on additional antibiotics Microscopic hematuria Unintentional weight loss Patient needs to be up-to-date on her age and gender malignancy screening Consider further evaluation due to microscopic hematuria Hyperlipidemia Continue statin Hypertension Holding lisinopril due to ISH Hold metoprolol for now Hypertrophic cardiomyopathy Monitor on telemetry to look for arrhythmia ER provider discussed the case with cardiology who felt local admission was appropriate Elevated troponin Likely nonischemic, nontraumatic myocardial injury Continue to trend No chest pain Patient has a left bundle branch block on EKG unclear chronicity Given known cardiomyopathy without chest pain suspect this represents a STEMI Prior to admission home medications that were felt to be needed immediately have been ordered. The remainder of the home medications will await pharmacy reconciliation and will be ordered by the attending provider in the a.m. Telehealth Visit: Today's History and Physical is provided via interactive telehealth by Dr. Rivas Izquierdo MD. Patient is located at [facility]. Provider is located at [facility]. Nursing staff assisted with the patient's exam. The visit being done today meets criteria for a telehealth visit and the patient or patients parent/guardian is aware the visit is a telehealth visit. Camera Start Time: 054 Camera End Time: 107 Medical Complexity: Complexity ~~~~~~~~~~~~~~~~ Dr. Rivas Izquierdo Telehealth: Statement Statement Telehealth Visit: Today's History and Physical is provided via interactive telehealth by Rivas Izquierdo MD.? Patient is located at [facility].? Provider is located at [facility].? Nursing staff assisted with the patient's exam. The visit being done today meets criteria for a telehealth visit and the patient or patient?s parent/guardian is aware the visit is a telehealth visit.
[2025-05-23] MEDS: HEPARIN 5,000 UNIT/0.5 ML INJ 5000 UNIT SUBCUT ×2 (02:23→12:43)
[2025-05-23] MEDS: MAGNESIUM SULF 1 G/100 ML 1 GM/100 ML PIGGYBACK IVPB (04:37)
[2025-05-23 05:31] LABS: Total Protein Urine Random* 100 mg/dL
[2025-05-23 06:40] LABS: Hematocrit* 31.5 % (33.0-51.0); Hemoglobin* 10.9 gm/dL (12.0-16.0); Immature Granulocytes Abs Auto 0.01 K/uL (0.00-0.30); Immature Granulocytes Pct Auto 0.2 %; Lymphocytes Absolute Auto 1.14 K/uL (0.90-2.90); Mean Corpuscular HGB Conc 35 gm/dL (32-36); Mean Corpuscular Hemoglobin 32 pg (26-34); Mean Corpuscular Volume 91 fL (80-100); RDW Coefficient of Variation % 12.4 % (11.5-15.5); Red Blood Count* 3.46 m/uL (4.00-5.20); White Blood Count* 5.22 K/uL (4.50-11.00)
[2025-05-23 06:42] LABS: Slide Review Reflex No
[2025-05-23 06:45] LABS: Chloride* 95 mmol/L (96-114); Potassium* 3.7 mmol/L (3.6-5.1); Sodium* 129 mmol/L (135-149)
[2025-05-23 06:48] LABS: Anion Gap 3 mEq/L (7-15); Blood Urea Nitrogen* 28 mg/dL (7-30); Calcium* 9.4 mg/dL (8.4-10.6); Carbon Dioxide* 31 mmol/L (20-32); Creatinine* 2.4 mg/dL (0.5-1.5); Est. Creatinine Clearance* 19.10; Estimated Glomerular Filt Rate 21 ml/min; Glucose* 107 mg/dL (60-115)
--- NOTE | 2025-05-23 07:46 | PC.NURSE ---
Pt arrived to the unit at 0045 via wheelchair. Accompanied by self. AxOx3, pleasant, and cooperative with cares. Denies dizziness/headache/nausea/pain at this time. SBA to bathroom, furniture walker. LSCTA on RA. Soup was made for Pt upon arrival. Call light within reach.
[2025-05-23 09:10] LABS: Sodium* 130 mmol/L (135-149)
[2025-05-23] MEDS: SODIUM CHLORIDE 0.9 % (FLUSH) 10 ML SYRINGE 5 ML IVF (10:19)
[2025-05-23] MEDS: METOPROLOL SUCCINATE (XL) 25 MG TAB PO (10:39)
[2025-05-23] MEDS: LACTATED RINGERS 500 ML 500 ML IV (10:41)
--- NOTE | 2025-05-23 13:30 | PC.NURSE ---
Patient with it assistant 100ft
[2025-05-23 13:53] LABS: Sodium* 130 mmol/L (135-149)
--- NOTE | 2025-05-23 15:53 | P.IMPN_ITS ---
Assessment and Plan Assessment and plan (1) Syncope: Problem comment: She has chronic orthostatic lightheadedness and now an episode of syncope. This is likely a combination of volume depletion from excess diuretic combined with her hypertrophic cardiomyopathy. Discussed with Cardiology. They recommend stopping diuretic and increasing metoprolol if possible. Status: Acute (2) Dehydration: Problem comment: Receive some IV fluids and diuretics are stopped. Continue to monitor Status: Acute (3) Hypertrophic cardiomyopathy: Problem comment: Has outpatient appointment with Dr. Devries of [facility] in [place] on July 28 at 1:00 a.m. in the afternoon. Status: Acute (4) ISH (acute kidney injury): Problem comment: Due to volume depletion from diuretic and possibly hypotension. Continue to mon itor. Status: Acute (5) Asymptomatic bacteriuria: Problem comment: Will treat well in patient with acute kidney injury. Monitor for signs or symptoms of UTI Status: Acute Plan Continue in hospital for monitoring of symptoms of lightheadedness and syncope, monitor blood pressure and pulse, monitoring acute kidney injury, urine output and renal function Total Time Spent Total Time Spent: Total time spent today is 55 minutes in reviewing outside records and coordination of care and discussing with patient and other providers ongoing management of above problems Subjective Date Seen: 05/23/25 Interval history: Charisse Huntley is a 69 year old female who was seen in the ER after a fall. The patient is a very active 69 female who has a history of hypertrophic cardiomyopathy, hypertension and hyperlipidemia who presented with significant lightheadedness over the last 3 to 4 days. She states prior to this current episode she would have some occasional orthostatic symptoms when she would sit up too fast she would feel lightheaded but otherwise she was doing well. But over the last 3 days or so she says she got very lightheaded and dizzy with activity. She did not have any chest pain or shortness of breath. She did have some occasional nausea. Her 's been worried about her because she has been losing weight, she attributes it to being more active than usual. She spends a lot of time outside gardening and riding her horse. However over the last several days she has been so lightheaded that she is has to steady herself on a wall or sit down quickly. She was going to the [employer] today and got so lightheaded she tumbled into the but displayed at the store. She did not have any injury. She denies any loss of consciousness. She denies any vertigo. Has not had any fevers or chills. She has not had any dysuria or urinary frequency. She has not had any recent medication changes although she does report that she she has been taking her diuretic scheduled rather than as needed for a while because it is too easy to forget if she takes it just as needed. Patient is under the care of cardiology at [facility] for her hypertrophic cardiomyopathy. She was last seen there at the beginning of April where she was reporting ongoing symptoms of orthostatic lightheadedness and exertional lightheadedness and some exertional dyspnea. Symptoms have been relatively longstanding but getting worse. She normally manages her lightheadedness by sitting down. This works for her and she has not passed out before. She could not sit down fast enough yesterday and so she fell and hit her head. She has urinary evidence of a urinary tract infection but is not having any symptoms of that. She did receive ceftriaxone last eye to the emergency room. She has acute kidney injury with a creatinine of 1.13 on 05/20/2025, 3 days ago. She does report that she is able to eat and drink adequately without vomiting or diarrhea. She has been taking Advil on a regular basis, every day, at least 2 or 3 tablets. She has not had any other medication changes recently though she is taking her furosemide daily rather than as needed for weight gain. Exam Narrative: Exam Narrative: She is alert appears in no distress. She gives her own history. Respirations are clear to auscultation except an occasional fine crackle. Cardiovascular: S1, S2, regular rate and rhythm. 2/6 systolic ejection murmur heard across the precordium. Abdomen is soft without tenderness or mass extremities without edema. Good peripheral pulses Const: Vital Signs, click to edit/add: Vital Signs - 24 hr 05/22/25 18:51 05/22/25 20:19 05/22/25 21:00 Temperature 98.3 F Pulse Rate Pulse Rate [Pulse Oximeter] 92 Pulse Rate [orthos tatic lying] 85 Pulse Rate [orthos tatic sitting Puls e Oximeter] 87 Pulse Rate [orthos tatic standing Rig ht Pulse Oximeter] 101 H Respiratory Rate 18 17 Blood Pressure Blood Pressure [Le ft Arm] Blood Pressure [Ri ght Arm] Blood Pressure [Ri ght Upper Arm] 97/64 Blood Pressure [or thostatic lying Le ft Arm] 106/62 Blood Pressure [or thostatic sitting] 121/65 Blood Pressure [or thostatic standing ] 80/59 L Pulse Oximetry 97 Oxygen Delivery Me thod Room Air 05/22/25 21:04 05/22/25 21:05 05/22/25 21:15 Temperature Pulse Rate 88 Pulse Rate [Pulse Oximeter] Pulse Rate [orthos tatic lying] Pulse Rate [orthos tatic sitting Puls e Oximeter] Pulse Rate [orthos tatic standing Rig ht Pulse Oximeter] Respiratory Rate 15 16 Blood Pressure 106/62 121/65 Blood Pressure [Le ft Arm] Blood Pressure [Ri ght Arm] Blood Pressure [Ri ght Upper Arm] Blood Pressure [or thostatic lying Le ft Arm] Blood Pressure [or thostatic sitting] Blood Pressure [or thostatic standing ] Pulse Oximetry 100 Oxygen Delivery Hi thod 05/22/25 21:30 05/22/25 21:45 05/22/25 21:46 Temperature Pulse Rate 93 87 87 Pulse Rate [Pulse Oximeter] Pulse Rate [orthos tatic lying] Pulse Rate [orthos tatic sitting Puls e Oximeter] Pulse Rate [orthos tatic standing Rig ht Pulse Oximeter] Respiratory Rate 18 12 Blood Pressure 104/57 L Blood Pressure [Le ft Arm] Blood Pressure [Ri ght Arm] Blood Pressure [Ri ght Upper Arm] Blood Pressure [or thostatic lying Le ft Arm] Blood Pressure [or thostatic sitting] Blood Pressure [or thostatic standing ] Pulse Oximetry 94 100 96 Oxygen Delivery Hi thod 05/22/25 21:52 05/22/25 22:00 05/22/25 22:01 Temperature Pulse Rate 61 84 86 Pulse Rate [Pulse Oximeter] Pulse Rate [orthos tatic lying] Pulse Rate [orthos tatic sitting Puls e Oximeter] Pulse Rate [orthos tatic standing Rig ht Pulse Oximeter] Respiratory Rate 16 16 16 Blood Pressure 104/57 L 117/64 Blood Pressure [Le ft Arm] Blood Pressure [Ri ght Arm] Blood Pressure [Ri ght Upper Arm] Blood Pressure [or thostatic lying Le ft Arm] Blood Pressure [or thostatic sitting] Blood Pressure [or thostatic standing ] Pulse Oximetry 95 98 98 Oxygen Delivery Hi thod Room Air 05/22/25 22:11 05/22/25 22:12 05/22/25 22:14 Temperature Pulse Rate 87 86 90 Pulse Rate [Pulse Oximeter] Pulse Rate [orthos tatic lying] Pulse Rate [orthos tatic sitting Puls e Oximeter] Pulse Rate [orthos tatic standing Rig ht Pulse Oximeter] Respiratory Rate 16 16 16 Blood Pressure 119/60 122/72 114/66 Blood Pressure [Le ft Arm] Blood Pressure [Ri ght Arm] Blood Pressure [Ri ght Upper Arm] Blood Pressure [or thostatic lying Le ft Arm] Blood Pressure [or thostatic sitting] Blood Pressure [or thostatic standing ] Pulse Oximetry 95 98 [facility] 22:15 05/22/25 22:17 05/22/25 22:28 Temperature Pulse Rate 85 87 Pulse Rate [Pulse Oximeter] Pulse Rate [orthos tatic lying] 93 Pulse Rate [orthos tatic sitting Puls e Oximeter] 85 Pulse Rate [orthos tatic standing Rig ht Pulse Oximeter] 85 Respiratory Rate 16 18 Blood Pressure 123/67 Blood Pressure [Le ft Arm] Blood Pressure [Ri ght Arm] Blood Pressure [Ri ght Upper Arm] Blood Pressure [or thostatic lying Le ft Arm] 114/66 Blood Pressure [or thostatic sitting] 122/72 Blood Pressure [or thostatic standing ] 119/60 Pulse Oximetry 99 98 [facility] 02:06 05/23/25 02:11 05/23/25 02:11 Temperature 98.2 F Pulse Rate 80 Pulse Rate [Pulse Oximeter] 74 Pulse Rate [orthos tatic lying] Pulse Rate [orthos tatic sitting Puls e Oximeter] Pulse Rate [orthos tatic standing Rig ht Pulse Oximeter] Respiratory Rate 16 Blood Pressure Blood Pressure [Le ft Arm] Blood Pressure [Ri ght Arm] 132/79 Blood Pressure [Ri ght Upper Arm] Blood Pressure [or thostatic lying Le ft Arm] Blood Pressure [or thostatic sitting] Blood Pressure [or thostatic standing ] Pulse Oximetry 100 [facility] Room Air 05/23/25 03:17 05/23/25 07:54 05/23/25 07:56 Temperature 97.8 F 97.7 F Pulse Rate Pulse Rate [Pulse Oximeter] 76 78 Pulse Rate [orthos tatic lying] Pulse Rate [orthos tatic sitting Puls e Oximeter] Pulse Rate [orthos tatic standing Rig ht Pulse Oximeter] Respiratory Rate 18 18 Blood Pressure Blood Pressure [Le ft Arm] 127/75 Blood Pressure [Ri ght Arm] 109/56 L Blood Pressure [Ri ght Upper Arm] Blood Pressure [or thostatic lying Le ft Arm] Blood Pressure [or thostatic sitting] Blood Pressure [or thostatic standing ] Pulse Oximetry 99 96 96 Oxygen Delivery Me thod Room Air Room Air 05/23/25 08:57 05/23/25 09:57 05/23/25 11:00 Temperature 98.1 F Pulse Rate Pulse Rate [Pulse Oximeter] 87 Pulse Rate [orthos tatic lying] 73 Pulse Rate [orthos tatic sitting Puls e Oximeter] 76 Pulse Rate [orthos tatic standing Rig ht Pulse Oximeter] 89 Respiratory Rate 18 18 Blood Pressure Blood Pressure [Le ft Arm] Blood Pressure [Ri ght Arm] 101/71 Blood Pressure [Ri ght Upper Arm] Blood Pressure [or thostatic lying Le ft Arm] 105/57 L Blood Pressure [or thostatic sitting] 93/61 Blood Pressure [or thostatic standing ] 70/47 L Pulse Oximetry 97 Oxygen Delivery Me thod Room Air 05/23/25 15:00 05/23/25 15:00 Temperature 98.6 F Pulse Rate Pulse Rate [Pulse Oximeter] 81 Pulse Rate [orthos tatic lying] Pulse Rate [orthos tatic sitting Puls e Oximeter] Pulse Rate [orthos tatic standing Rig ht Pulse Oximeter] Respiratory Rate 18 Blood Pressure Blood Pressure [Le ft Arm] Blood Pressure [Ri ght Arm] 118/73 Blood Pressure [Ri ght Upper Arm] Blood Pressure [or thostatic lying Le ft Arm] Blood Pressure [or thostatic sitting] Blood Pressure [or thostatic standing ] Pulse Oximetry 96 96 Oxygen Delivery Me thod Room Air Documenting provider has reviewed patient's vital signs: yes Labs Labs: Laboratory Results - last 24 hr 05/22/25 05/22/25 05/22/25 20:18 20:19 21:15 WBC 6.90 RBC 3.87 L Hgb 11.8 L Hct 35.0 MCV 90 MCH 31 MCHC 34 RDW Coeff of Agnes 12.4 Plt Count 229 Neut % (Auto) 71.0 Lymph % (Auto) 17.8 L [place] % (Auto) 10.1 Eos % (Auto) 0.6 Baso % (Auto) 0.4 Neut # (Auto) 4.89 Lymph # (Auto) 1.20 [place] # (Auto) 0.70 Eos # (Auto) 0.04 Baso # (Auto) 0.03 Abs Immat Gran (auto) 0.01 Imm/Tot Granulo (auto) 0.1 D-Dimer Quant (PE/DVT) 0.56 H Sodium 126 L Potassium 4.0 Chloride 88 L Carbon Dioxide 28 Anion Gap 10 BUN 28 Creatinine 2.9 H Estimated Creat Clear Estimated GFR 17 Glucose 121 H Calcium 10.7 H Magnesium 1.5 Troponin I 0.09 H* Urine Color Yellow Urine Appearance Clear Urine pH 5.5 Ur Specific Alexander 1.020 Urine Protein 2+ A Urine Glucose (UA) Negative Urine Ketones Trace A Urine Blood Trace-lysed A Urine Nitrite Negative Urine Bilirubin 1+ A Urine Urobilinogen 0.2 Ur Leukocyte Esterase 3+ A Urine RBC 5-10 A Urine WBC >100 A Ur Squamous Epith Cells Few Amorphous Sediment Moderate A Urine Bacteria Few A Ur Random Creatinine U Random Total Protein SARS-CoV-2 (PCR) Negative SARS-CoV-2 Influenza Type A (PCR) Negative PCR FLU A Influenza Type B (PCR) Negative PCR FLU B RSV (PCR) Negative PCR RSV Lab Acknowledgement Test Added POC Troponin I 0.06 H 05/22/25 05/23/25 05/23/25 23:45 03:44 06:02 WBC 5.22 RBC 3.46 L Hgb 10.9 L Hct 31.5 L MCV 91 MCH 32 MCHC 35 RDW Coeff of Agnes 12.4 Plt Count 198 Neut % (Auto) 63.1 Lymph % (Auto) 21.8 [place] % (Auto) 13.0 H Eos % (Auto) 1.3 Baso % (Auto) 0.6 Neut # (Auto) 3.29 Lymph # (Auto) 1.14 [place] # (Auto) 0.70 Eos # (Auto) 0.07 Baso # (Auto) 0.03 Abs Immat Gran (auto) 0.01 Imm/Tot Granulo (auto) 0.2 D-Dimer Quant (PE/DVT) Sodium 129 L Potassium 3.7 Chloride 95 L Carbon Dioxide 31 Anion Gap 3 L BUN 28 Creatinine 2.4 H Estimated Creat Clear 19.10 Estimated GFR 21 Glucose 107 Calcium 9.4 Magnesium Troponin I 0.08 H* Urine Color Urine Appearance Urine pH Ur Specific Alexander Urine Protein Urine Glucose (UA) Urine Ketones Urine Blood Urine Nitrite Urine Bilirubin Urine Urobilinogen Ur Leukocyte Esterase Urine RBC Urine WBC Ur Squamous Epith Cells Amorphous Sediment Urine Bacteria Ur Random Creatinine 214 U Random Total Protein 100 SARS-CoV-2 (PCR) Influenza Type A (PCR) Influenza Type B (PCR) RSV (PCR) Lab Acknowledgement POC Troponin I 0.05 H 05/23/25 05/23/25 08:54 13:25 WBC RBC Hgb Hct MCV MCH MCHC RDW Coeff of Agnes Plt Count Neut % (Auto) Lymph % (Auto) [place] % (Auto) Eos % (Auto) Baso % (Auto) Neut # (Auto) Lymph # (Auto) [place] # (Auto) Eos # (Auto) Baso # (Auto) Abs Immat Gran (auto) Imm/Tot Granulo (auto) D-Dimer Quant (PE/DVT) Sodium 130 L 130 L Potassium Chloride Carbon Dioxide Anion Gap BUN Creatinine Estimated Creat Clear Estimated GFR Glucose Calcium Magnesium Troponin I Urine Color Urine Appearance Urine pH Ur Specific [place] Urine Protein Urine Glucose (UA) Urine Ketones Urine Blood Urine Nitrite Urine Bilirubin Urine Urobilinogen Ur Leukocyte Esterase Urine RBC Urine WBC Ur Squamous Epith Cells Amorphous Sediment Urine Bacteria Ur Random Creatinine U Random Total Protein SARS-CoV-2 (PCR) Influenza Type A (PCR) Influenza Type B (PCR) RSV (PCR) Lab Acknowledgement POC Troponin I
[2025-05-23] MEDS: cefTRIAXone 1 GM in 0.9 % SODIUM CHLORIDE Mini-bag 100 ML IVPB (16:52)
[2025-05-23] MEDS: MAGNESIUM OXIDE 400 MG TABLET PO (17:51)
--- NOTE | 2025-05-23 19:23 | PC.NURSE ---
End of Shift: Patient pleasant and cooperative, A&O. Patient has been slightly hypotensive, this shift, MD updated, 500cc bolus complete, all other VSS. Patient denies pain this shift. Tolerating heart healthy diet. SBA w/ 4ww, due to hypotension. ?
[2025-05-24 02:00] VITALS: PULSE 77
[2025-05-24] MEDS: HEPARIN 5,000 UNIT/0.5 ML INJ 5000 UNIT SUBCUT ×2 (02:18→13:34)
[2025-05-24 03:00] VITALS: BP 133/72; PULSE 78; RESP 18; TEMP 36.6; O2SAT 99
[2025-05-24 06:30] LABS: Chloride* 100 mmol/L (96-114); Sodium* 132 mmol/L (135-149)
[2025-05-24 06:31] LABS: Potassium* 3.7 mmol/L (3.6-5.1)
[2025-05-24 06:34] LABS: Anion Gap 3 mEq/L (7-15); Blood Urea Nitrogen* 21 mg/dL (7-30); Calcium* 9.1 mg/dL (8.4-10.6); Carbon Dioxide* 29 mmol/L (20-32); Creatinine* 1.2 mg/dL (0.5-1.5); Est. Creatinine Clearance* 38.21; Estimated Glomerular Filt Rate 49 ml/min; Glucose* 107 mg/dL (60-115)
[2025-05-24 07:00] VITALS: PULSE 77; O2SAT 99
--- NOTE | 2025-05-24 07:06 | PC.NURSE ---
End of shift ([id number]): Pt pleasant, alert and oriented with periods of forgetfulness. VSS. Tele reads NSR with 1st degree and BBB. Pt in bed, appears to be resting, call light within reach.?
[2025-05-24 08:00] VITALS: BP 108/64; BP 125/82; BP 72/48; PULSE 104; PULSE 80; PULSE 83; RESP 18; TEMP 36.8; O2SAT 99
[2025-05-24] MEDS: MAGNESIUM OXIDE 400 MG TABLET PO (08:16)
[2025-05-24] MEDS: METOPROLOL SUCCINATE (XL) 25 MG TAB 50 MG PO (09:49)
[2025-05-24] MEDS: ASPIRIN 81 MG TABLET EC PO (09:49)
[2025-05-24] MEDS: SODIUM CHLORIDE 0.9 % (FLUSH) 10 ML SYRINGE 5 ML IVF (09:50)
[2025-05-24] MEDS: ATORVASTATIN CALCIUM 40 MG TABLET PO (09:50)
[2025-05-24 11:00] VITALS: BP 116/67; PULSE 81; RESP 18; TEMP 36.7; O2SAT 98
--- NOTE | 2025-05-24 12:34 | P.DS_ITS ---
DS: Providers Provider Date Seen: 05/24/25 Date of admission: 05/23/25 00:26 Primary care physician: Not a Local Provider Admitting Clinician: Rivas Izquierdo MD Attending Physician on discharge: Mitchel Brand MD Date of Discharge: 05/24/25 DS: Diagnosis Discharge Diagnosis (1) Syncope: Status: Acute Problem details: She has chronic orthostatic lightheadedness and now an episode of syncope. This is likely a combination of volume depletion from excess diuretic combined with her hypertrophic cardiomyopathy. Discussed with Cardiology. They recommend stopping furosemide and spironolactone and increasing metoprolol if possible. Close outpatient follow-up. (2) Hypertrophic cardiomyopathy: Status: Acute Problem details: Has outpatient appointment with Dr. Devries of [facility] in [place] on July 28 at 1:00 a.m. in the afternoon. Arrange follow up next week with [facility] in [place] (3) Asymptomatic bacteriuria: Status: Acute Problem details: Will treat well in patient with acute kidney injury. Monitor for signs or symptoms of UTI. Treated with ceftriaxone but in the absence of symptoms no further treatment. Cultures still pending with [id number] colonies of Gram- negative franco (4) Dehydration: Status: Acute Problem details: Due to excess diuretic. Resolved with IV fluids and holding diuretic (5) ISH (acute kidney injury): Status: Acute Problem details: Due to volume depletion from diuretic and possibly hypotension. Baseline creatinine 0.9. Admission creatinine 2.9. Discharge creatinine 1.2. Follow up next week. Stop NSAIDs, furosemide and spironolactone. (6) Acute hyponatremia: Status: Acute Problem details: Due to volume depletion and spironolactone (7) Hypotension: Status: Acute Problem details: Due to excess diuretic. (8) Elevated troponin: Status: Acute Problem details: Due to acute kidney injury, cardiomyopathy. No chest pain or acute EKG changes (9) Hypercalcemia: Status: Acute Problem details: Resolved with hydration. DS: Summary Hospital Course Hospital Course: Charisse Huntley is a 69 year old female who was seen in the ER after a fall. The patient is a very active 69 female who has a history of hypertrophic cardiomyopathy, hypertension and hyperlipidemia who presented with significant lightheadedness over the last 3 to 4 days. She states prior to this current episode she would have some occasional orthostatic symptoms when she would sit up too fast she would feel lightheaded but otherwise she was doing well. But over the last 3 days or so she says she got very lightheaded and dizzy with activity. She did not have any chest pain or shortness of breath. She did have some occasional nausea. Her 's been worried about her because she has been losing weight, she attributes it to being more active than usual. She spends a lot of time outside gardening and riding her horse. However over the last several days she has been so lightheaded that she is has to steady herself on a wall or sit down quickly. She was going to the [employer] today and got so lightheaded she tumbled into the but displayed at the store. She did not have any injury. She denies any loss of consciousness. She denies any vertigo. Has not had any fevers or chills. She has not had any dysuria or urinary frequency. She has not had any recent medication changes although she does report that she she has been taking her diuretic scheduled rather than as needed for a while because it is too easy to forget if she takes it just as needed. Patient is under the care of cardiology at [facility] for her hypertrophic cardiomyopathy. She was last seen there at the beginning of April where she was reporting ongoing symptoms of orthostatic lightheadedness and exertional lightheadedness and some exertional dyspnea. Symptoms have been relatively longstanding but getting worse. She normally manages her lightheadedness by sitting down. This works for her and she has not passed out before. She could not sit down fast enough yesterday and so she fell and hit her head. She has urinary evidence of a urinary tract infection but is not having any symptoms of that. She did receive ceftriaxone last eye to the emergency room. She has acute kidney injury with a creatinine of 1.13 on 05/20/2025, 3 days ago. She does report that she is able to eat and drink adequately without vomiting or diarrhea. She has been taking Advil on a regular basis, every day, at least 2 or 3 tablets. She has not had any other medication changes recently though she is taking her furosemide daily rather than as needed for weight gain. 05/24/2025. She continues to have relatively low blood pressure. Not symptomatic. Ambulating without difficulty. Taking p.o. food and fluid adequately. Creatinine improved to 1.2. Medication changes at the time of discharge include stopping furosemide and spironolactone and reducing lisinopril from 20 mg to 10 mg daily and increasing metoprolol from 25-50 mg daily. Will need close follow-up to assess symptoms, electrolytes, renal function, volume status and vital signs. Arrange this at [facility] for next week Status at Discharge Overall status at discharge: patient is progressing back to baseline Time Spent with Patient Time attestation: Total time spent providing and/or coordinating discharge services: 45 minutes Exam Narrative: Exam Narrative: She is alert and appears in no distress. Respirations are clear to auscultation. Cardiovascular: S1, S2, a 1-2/6 systolic murmur heard across the precordium. Abdomen is soft without tenderness. Extremities without edema. Const: Vital Signs, click to edit/add: Vital Signs - 24 hr 05/23/25 15:00 05/23/25 15:00 05/23/25 15:00 Temperature 98.6 F Pulse Rate Pulse Rate [Pulse Oximeter] 81 Pulse Rate [orthos tatic lying] Pulse Rate [orthos tatic sitting Puls e Oximeter] Pulse Rate [orthos tatic standing Rig ht Pulse Oximeter] Respiratory Rate 18 18 Blood Pressure [Le ft Arm] Blood Pressure [Ri ght Arm] 118/73 Blood Pressure [or thostatic lying Le ft Arm] Blood Pressure [or thostatic sitting] Blood Pressure [or thostatic standing ] Pulse Oximetry 96 96 Oxygen Delivery Me thod Room Air 05/23/25 19:00 05/23/25 19:10 05/23/25 23:00 Temperature 98.8 F Pulse Rate 84 Pulse Rate [Pulse Oximeter] 79 Pulse Rate [orthos tatic lying] Pulse Rate [orthos tatic sitting Puls e Oximeter] Pulse Rate [orthos tatic standing Rig ht Pulse Oximeter] Respiratory Rate 18 Blood Pressure [Le ft Arm] Blood Pressure [Ri ght Arm] 102/64 Blood Pressure [or thostatic lying Le ft Arm] Blood Pressure [or thostatic sitting] Blood Pressure [or thostatic standing ] Pulse Oximetry 96 97 Oxygen Delivery Me thod Room Air 05/23/25 23:00 05/24/25 02:00 05/24/25 03:00 Temperature 97.9 F Pulse Rate 77 Pulse Rate [Pulse Oximeter] 79 78 Pulse Rate [orthos tatic lying] Pulse Rate [orthos tatic sitting Puls e Oximeter] Pulse Rate [orthos tatic standing Rig ht Pulse Oximeter] Respiratory Rate 18 18 Blood Pressure [Le ft Arm] Blood Pressure [Ri ght Arm] 133/72 Blood Pressure [or thostatic lying Le ft Arm] Blood Pressure [or thostatic sitting] Blood Pressure [or thostatic standing ] Pulse Oximetry 99 Oxygen Delivery Me thod Room Air 05/24/25 07:00 05/24/25 07:00 05/24/25 08:00 Temperature Pulse Rate 77 Pulse Rate [Pulse Oximeter] Pulse Rate [orthos tatic lying] 80 Pulse Rate [orthos tatic sitting Puls e Oximeter] 83 Pulse Rate [orthos tatic standing Rig ht Pulse Oximeter] 104 H Respiratory Rate Blood Pressure [Le ft Arm] Blood Pressure [Ri ght Arm] Blood Pressure [or thostatic lying Le ft Arm] 125/82 Blood Pressure [or thostatic sitting] 108/64 Blood Pressure [or thostatic standing ] 72/48 L Pulse Oximetry 99 Oxygen Delivery Me thod 05/24/25 08:00 05/24/25 08:00 Temperature 98.3 F Pulse Rate Pulse Rate [Pulse Oximeter] 80 80 Pulse Rate [orthos tatic lying] Pulse Rate [orthos tatic sitting Puls e Oximeter] Pulse Rate [orthos tatic standing Rig ht Pulse Oximeter] Respiratory Rate 18 18 Blood Pressure [Le ft Arm] 125/82 Blood Pressure [Ri ght Arm] Blood Pressure [or thostatic lying Le ft Arm] Blood Pressure [or thostatic sitting] Blood Pressure [or thostatic standing ] Pulse Oximetry 99 Oxygen Delivery Me thod Room Air Documenting provider has reviewed patient's vital signs: yes DS: Data Data Completed and Pending Labs on day of discharge: Labs from last 24 hours 05/24/25 05/23/25 06:08 13:25 Sodium 132 L 130 L Potassium 3.7 Chloride 100 Carbon Dioxide 29 Anion Gap 3 L BUN 21 Creatinine 1.2 Estimated Creat Clear 38.21 Estimated GFR 49 Glucose 107 Calcium 9.1 Magnesium 1.8 Preliminary micro results at discharge 05/22/25 20:19 Urine Culture - Preliminary Urine,Clean Catch Gram negative franco Imaging Chest x-ray: Radiologist's impression: INDICATION: Near-syncope TECHNIQUE: Chest 2 views. COMPARISON: Chest radiograph on September 24, 2023 FINDINGS: Cardiovascular and mediastinum: Cardiomegaly, stable. Hiatal hernia. Lungs and pleural spaces: Hyperexpansion of the lungs with flattening of the diaphragm. No focal pulmonary consolidation. No pleural effusion or pneumothorax. Bones and soft tissues: Exaggerated thoracic kyphosis. Diffuse osseous demineralization with multilevel degenerative changes of the spine. IMPRESSION: No acute cardiopulmonary process. Discharge Plan Discharge Disposition: Home, Self-Care Date of Admission: 05/23/25 00:26 Attending Provider on Discharge: Vikram Brand Primary Care Provider: Provider,Not a Local Condition: Improved Anticipated Discharge Date/Time: 05/24/25 13:00 Discharge Medications: New (DME) Walker- 4 Wheels Misc See Rx Instructions .Route Qty: 1 0RF Rx Instructions: As directed Continued atorvastatin 40 mg tablet 40 mg PO DAILY aspirin [Adult Aspirin Regimen] 81 mg tablet,delayed release (DR/EC) 81 mg PO DAILY Changed lisinopril 10 mg tablet 10 mg PO DAILY Qty: 30 0RF metoprolol succinate 25 mg tablet extended release 24 hr 50 mg PO DAILY Qty: 60 0RF Discontinued furosemide 20 mg tablet 20 mg PO DAILY spironolactone 25 mg tablet 25 mg PO DAILY Discharge Orders: Discharge Order (Routine); Ordered 05/24/25 Ordered By: Vikram Brand Patient Education: Aspirin (By mouth), Atorvastatin (By mouth), Syncope (DC) Additional Instructions: Stop taking ibuprofen/Advil and avoid all NSAIDs due to risk for kidney injury. Use acetaminophen if needed for pain. Stop taking furosemide and spironolactone. I have reduced the dose of lisinopril because of low blood pressure. I have increased the dose of metoprolol for your hypertrophic cardiomyopathy. Activity Level: Activity as Tolerated Discharge Diet: Heart Healthy (2 gm sodium, low fat) Follow Up Appointments: [facility] [Outside] - 05/31/25 11:15 am Referral Note: [facility] [place]: [id number] [place], [place] [id number] for Lab Only. Karin Tucker PA [Referring, Family Practice] - 06/10/25 1:00 pm Referral Note: [facility] in [place] this is the only appointment they had open. If we make a lab only she can go to any clinic for this test- Check basic metabolic panel within 1 week. Reyes Wick MD [Referring, Internal Medicine] - 07/28/25 1:00 pm Referral Note: You have an appointment with Dr. Devries at the [facility] in [place] on July 28 at 1:00 p.m.. Provider,Not a Local [Primary Care Provider, Family Practice] Forms: [facility] Bel[facility], [facility] Info Instructions
--- NOTE | 2025-05-24 14:01 | PC.NURSE ---
Discharge: Patient pleasant and cooperative, A&O. VSS, afebrile. SpO2 maintained above 90% on RA. Tolerating heart healthy diet. IV removed with tip intact. discharge instructions provided, all questions answered. D/C to home with
== END 2025-05-24 13:50 | disposition home or self-care (01) | DRG 312 ==
LOC: ED 22:48 → MEDSURG 05-23 00:27
PROVIDERS: Family Medicine; Admitting Provider Internal Medicine; Emergency Provider Student in an Organized Health Care Education/Training Program; Visit Provider Internal Medicine
DX: I95.2 Hypotension due to drugs (principal); N17.9 Acute kidney failure, unspecified; E87.1 Hypo-osmolality and hyponatremia; I42.2 Other hypertrophic cardiomyopathy; T50.0X5A Adverse effect of mineralocorticoids and their antagonists, initial encounter; T50.1X5A Adverse effect of loop [high-ceiling] diuretics, initial encounter; R82.71 Bacteriuria; B96.20 Unspecified Escherichia coli [E. coli] as the cause of diseases classified elsewhere; R31.21 Asymptomatic microscopic hematuria; E86.0 Dehydration; E83.52 Hypercalcemia; R63.4 Abnormal weight loss; R79.89 Other specified abnormal findings of blood chemistry; I10 Essential (primary) hypertension; E78.5 Hyperlipidemia, unspecified
CPT/HCPCS: 36415; 51798; 71046; 80048; 81001; 82570; 83735; 84156; 84295; 84484; 85025; 85379; 87081; 87086; 87637; 93005; 97161; 97165; 99285; A9270; J0696; J1644; J3475; J7030; J7120